=== PATIENT | female | born 1945 | race Caucasian/White ===

== ENCOUNTER 2017-08-19 06:52 | Day surgery (SDC) | payer MEDICARE ==
[~2017-08-19 06:52] MED LIST: Acetaminophen TAB* 325 MG PO PRN; Buffered Lidocaine 0.9% SYRIN* 5 ML/SYR SYRINGE INTRADERM ONE
[2017-08-19] MEDS ORDERED: fentaNYL* 50 MCG/ML 2 ML VIAL (100 MCG VIAL) ONE (07:23)
[2017-08-19] MEDS ORDERED: Midazolam* 1 MG/ML 2 ML VIAL (2 MG) ONE (07:23)
[2017-08-19 08:50] VITALS: BP 161/89
[2017-08-19] MEDS ORDERED: Tropicamide 1% OPTH.SOL* BTL ONE (08:58)
[2017-08-19] MEDS ORDERED: Cyclopentolate 1% OPTH.SOL* 2 ML BTL ONE (08:58)
[2017-08-19] MEDS ORDERED: Tetracaine 0.5% OPTH.SOL 4 ML* 1 DROP BTL ONE (08:58)
[2017-08-19] MEDS ORDERED: Lidocaine 1% MPF* 2 ML VIAL ONE (08:58)
[2017-08-19] MEDS ORDERED: Phenylephrine 2.5% OPTH.SOL* 2 ML BTL ONE (08:58)
[2017-08-19] MEDS ORDERED: Ketorolac 0.5% OPHTH (NF) 0.5 % 5 ML BTL ONE (08:58)
[2017-08-19] MEDS ORDERED: Neomycin/Polymy/Dex OPHTH.OIN* 3.5 GM ONE (08:58)
--- NOTE | 2017-08-19 21:01 | OP ---
DATE OF OPERATION: 08/19/17 - [facility] DATE OF : 47 SURGEON: Zaki Shelby MD CHIEF HYDROELECTRIC STATION OPERATOR: None. ANESTHESIA: Topical with intravenous sedation. PRE-OP DIAGNOSIS: Cataract with astigmatism, right eye. POST-OP DIAGNOSIS: Cataract with astigmatism, right eye. OPERATIVE PROCEDURE: Phacoemulsification and cataract extraction with posterior chamber toric intraocular lens implant right eye. COMPLICATIONS: None. BLOOD LOSS: None. DESCRIPTION OF PROCEDURE: The patient was seen preoperatively in the holding area, where she was placed in an upright position. A cedric was made at the 6 o' clock position at the limbus of the right eye. The patient was subsequently brought to the operating room and received a small amount of intravenous sedation and a drop of tetracaine. The patient was prepped in the usual sterile fashion for ophthalmic surgery and a speculum was placed into her right eye. A para-centesis was created at the 11 o'clock position and 0.1 cc of 1% preservative-free lidocaine was injected into the anterior chamber followed by DisCoVisc. The eye was digitally stabilized while a 2.75-mm keratome was used to create a triplanar clear corneal incision at the 9 o'clock position. A continuous curvilinear capsulorrhexis was created with a cystotome and Utrata forceps. BSS on a cannula was used to hydrodissect the lens from the capsule. Phacoemulsification was performed in a qzgczh-pta-dpplivv technique to create 4 fragments, which were removed. Residual cortical material was removed with irrigation and aspiration. Healon was used to inflate the capsular bag. A Cruz marker and marking pen were used to cedric the 3- degree axis of the limbus. An SN6AT3 20.5 diopter lens was folded and inserted into the capsular bag. It was dialed to the appropriate orientation using a Sinskey hook and stabilized there with a Sinskey hook to the paracentesis site. Irrigation and aspiration were performed to remove viscoelastic from the eye. The Sinskey hook was removed. BSS on a cannula was used to hydrate the corneal stroma and seal the wound. At the end of the case, the pupil was round. The lens was centered stable and axially aligned. The eye pressure appeared normal and the wound was watertight. The speculum was removed. Topical Maxitrol ointment was placed on the surface of the eye. The eye was closed, patched and shielded, and the patient was sent to recovery room in stable condition with postoperative instructions and followup appointment given. [id number]/[facility] #: [id number] [place]
== END 2017-08-19 08:52 | disposition home or self-care (01) ==
LOC: OREAST 06:52
PROVIDERS: ATTEND Ophthalmology
DX: H25.11 Age-related nuclear cataract, right eye (principal); E11.9 Type 2 diabetes mellitus without complications; Z87.891 Personal history of nicotine dependence; I10 Essential (primary) hypertension; K21.0 Gastro-esophageal reflux disease with esophagitis; E78.5 Hyperlipidemia, unspecified
CPT/HCPCS: A9270-GY; J2250; J3010; V2787

== ENCOUNTER 2017-08-26 10:07 | Day surgery (SDC) | payer MEDICARE ==
[2017-08-26] MEDS ORDERED: fentaNYL* 50 MCG/ML 2 ML VIAL (100 MCG VIAL) ONE (11:40)
[2017-08-26] MEDS ORDERED: Midazolam* 1 MG/ML 2 ML VIAL (2 MG) ONE (11:40)
[2017-08-26] MEDS ORDERED: Tropicamide 1% OPTH.SOL* BTL ONE (12:18)
[2017-08-26] MEDS ORDERED: Neomycin/Polymy/Dex OPHTH.OIN* 3.5 GM ONE (12:18)
[2017-08-26] MEDS ORDERED: Phenylephrine 2.5% OPTH.SOL* 2 ML BTL ONE (12:18)
[2017-08-26] MEDS ORDERED: Tetracaine 0.5% OPTH.SOL 4 ML* 1 DROP BTL ONE (12:18)
[2017-08-26] MEDS ORDERED: Lidocaine 1% MPF* 2 ML VIAL ONE (12:18)
[2017-08-26] MEDS ORDERED: Cyclopentolate 1% OPTH.SOL* 2 ML BTL ONE (12:18)
[2017-08-26] MEDS ORDERED: Ketorolac 0.5% OPHTH (NF) 0.5 % 5 ML BTL ONE (12:19)
[2017-08-26 12:58] VITALS: BP 148/95
--- NOTE | 2017-08-27 12:31 | OP ---
DATE OF OPERATION: 08/26/17 - [facility] DATE OF : 47 SURGEON: Zaki Shelby MD CENTER RECEPTIONIST: None. ANESTHESIA: Topical with intravenous sedation. PRE-OP DIAGNOSIS: Cataract, left eye with astigmatism. POST-OP DIAGNOSIS: Cataract, left eye with astigmatism. OPERATIVE PROCEDURE: Phacoemulsification and cataract extraction with posterior chamber toric intraocular lens implant, left eye. COMPLICATIONS: None. BLOOD LOSS: None. DESCRIPTION OF PROCEDURE: The patient was seen preoperatively in the holding area where she was placed in upright position and a cedric was made at the 6 o' clock position on the limbus of the left eye. The patient was subsequently brought to the operating room and given a small amount of intravenous sedation and a drop of tetracaine to the left eye. The patient was prepped and draped in the usual sterile fashion for ophthalmic surgery and attention was directed to the left eye where a speculum was placed. A paracentesis was created at the 5 o'clock position and 0.1 cc of 1% preservative-free lidocaine was injected into the anterior chamber followed by DisCoVisc. The eye was digitally stabilized while a 2.75 mm keratome was used to create a triplanar clear corneal incision at the 3 o'clock position. A continuous curvilinear capsulorrhexis was created using a cystotome and Utrata forceps. BSS on a cannula was used to hydrodissect the lens from the capsule. Phacoemulsification was performed in a gmnsub-nbd-nsizyjs technique to create 4 fragments which were removed. Residual cortical material was removed with irrigation and aspiration. Healon was used to inflate the capsular bag. A Crzu marker was used to cedric the 172 degree axis. An SN6AT3 21 diopter lens was folded and inserted into the capsular bag. It was dialed to the appropriate axial alignment with a Sinskey hook. The Sinskey hook remained in the eye to stabilize the lens with a paracentesis while irrigation and aspiration were performed to remove viscoelastic from the eye. BSS on a cannula was used to hydrate the corneal stroma. At the end of the case, the pupil was round. The lens was centered, stable and axillary aligned. The eye pressure appeared normal. The wound was water tight. The speculum was removed and topical Maxitrol ointment was placed on the surface of the eye. The eye was closed, patched and shielded and the patient was sent to the recovery room in stable condition with postop instructions and followup appointment given. [id number]/[facility] #: [id number] [place]
== END 2017-08-26 13:06 | disposition home or self-care (01) ==
LOC: OREAST 10:07
PROVIDERS: ATTEND Ophthalmology
DX: H25.12 Age-related nuclear cataract, left eye (principal); I10 Essential (primary) hypertension; E78.00 Pure hypercholesterolemia, unspecified; E11.9 Type 2 diabetes mellitus without complications; Z87.891 Personal history of nicotine dependence; K21.9 Gastro-esophageal reflux disease without esophagitis
CPT/HCPCS: A9270-GY; J2250; J3010; V2787

== ENCOUNTER 2019-06-16 08:03 | Inpatient (IN) | payer MEDICARE ==
--- OUTSIDE RECORDS SUMMARY | 2019-06-16 08:13 | XMS REPORT | Continuity of Care Document ---
:1945 External Reference #:[id number] Author Name Devon Curiel M.D. Address [address] [place] [address] [address] [place] [address] Care Team Providers Name Role Phone Trever Mcarthur MD - Sports Medicine Care Team Information Lead Care Manager Samia Santana MD - Orthopaedic Care Team Information Lead Care Manager [phone] Surgery [facility] - Spec/Tech, Care Team Information Lead Care Manager [phone] Cardiovascular Zaki Shelby MD [facility] - Care Team Information Lead Care Manager [phone] Ophthalmology Problems Active Problems Provider Date Essential hypertension Marcia Sierra MD Onset: 01/23/2006 Type 2 diabetes mellitus Marcia Sierra MD Onset: 02/08/2010 Pure hypercholesterolemia Marcia Sierra MD Onset: 02/08/2010 Arthralgia of the ankle and/or foot Marcia Sierra MD Onset: 02/08/2010 History of malignant neoplasm of skin Devon Curiel M.D. Onset: 11/24/2018 Essential hypertension Pebbles Moreno RPA-C Onset: 04/07/2015 Gastroesophageal reflux disease Marcia Sierra MD Onset: 11/29/2014 Social History Type Date Description Comments Sex Unknown Tobacco Use Start: Unknown End: Does Not Smoke quit 40 years ago Unknown Cigarettes (08/13/17) Smoking Status Reviewed: 05/19/19 Does Not Smoke quit 40 years ago Cigarettes (08/13/17) ETOH Use Drinks Alcohol Occasionally Recreational Drug Use Denies Drug Use Tobacco Use Start: Unknown Non Smoker Tobacco Use Start: Unknown End: Patient is a former Unknown smoker Allergies, Adverse Reactions, Alerts Description No Known Drug Allergies Medications Active Medications SIG Qnty Indications Ordering Date Provider Triamterene/Hydrochl take 1 tablet by 90tabs I10 Silcoff, 11/24/2018 orothiazide mouth every Apple Osorio 37.5-25mg morning for high Tablets blood pressure Onetouch Ultra Blue use as directed up 100units E11.9 Silcoff, 04/22/2017 to once/day for Apple Osorio Strips blood sugar monitoring Losartan Potassium Take 1 Tablet By 90tabs I10 Silcoff, 01/05/2016 Mouth Once Daily Apple Osorio 100mg Tablets Pantoprazole Sodium Take One Tablet By 180tabs K21.0 Silcoff, 01/05/2016 Mouth Twice Daily Apple Osorio 40mg Tablets For Acid Reflux Atorvastatin Calcium Take 1 Tablet By 90tabs E78.00 Silcoff, 11/24/2013 Mouth Once Daily Apple Osorio 40mg Tablets Fish Oil bid Marcia Sierra 05/21/2007 Asa (Baby) 1 by mouth every 100units Marcia Sierra 01/23/2006 81mg day Multi-Vitamin 1 po qd 30tabs Unknown Tablets Immunizations CPT Code Status Date Vaccine Lot # [id number] Given 04/09/2019 Influenza Vaccine Split Virus Preservative Free [place] Use 31880 Given 05/14/2018 Shingrix Zoster (Shingles) Vaccine (HZV) Recomb,Subnit,Adjuvanted 96282 Given 03/13/2018 Shingrix Zoster (Shingles) Vaccine (HZV) Recomb,Subnit,Adjuvanted 17751 Given 04/12/2016 Pneumococcal Immunization [id number] 29126 Given 04/12/2016 Influenza Virus Vaccine, Quadrivalent, Split, [id number] Preservative Free 27399 Given 04/10/2015 Influenza Vaccine Split Virus Preservative Free Im Use 37687 Given 04/07/2015 Prevnar 13 [id number] 21653 Given 04/27/2013 Flu, Split Virus 3Yrs [id number] 89376 Given 05/02/2011 Flu, Split Virus 3Yrs [id number] 00773 Given 11/15/2010 Adacel or Boostrix, TDaP [id number] 18538 Given 06/12/2010 Pneumococcal Immunization [id number] 53326 Given 04/06/2009 Flu, Split Virus 3Yrs [id number] 76427 Given 12/30/2006 Td Immunization [id number] 24631 Given 05/14/2005 Flu, Split Virus 3Yrs 35856 Given Unknown Flu, Split Virus 3Yrs Vital Signs Date Vital Result Comment 05/19/2019 9:14am BP Systolic 128 mmHg BP Diastolic 74 mmHg Height 65.5 inches 5'5.50" Weight 159.00 lb BMI (Body Mass Index) 26.1 kg/m2 01/06/2019 9:41am BP Systolic 114 mmHg BP Diastolic 68 mmHg BP Systolic Recheck 120 mmHg R arm sitting BP Diastolic Recheck 76 mmHg R arm sitting Weight 159.00 lb Results Test Acquired Date Facility Test Result H/L Range Note Laboratory test 05/19/2019 In House Hemoglobin A1c 6.6 finding Urine 05/10/2019 [facility] Ur Microalbumin < 15.0 Microalbumin [phone] (mg/L) mg/L Random Urine Creatinine 58.32 mg/dL Urine Microalbumin/Creatinine TNP <31 1 Basic Metabolic Panel 05/10/2019 [facility] Sodium 137 mmol/L Normal 135-145 [phone] Potassium 3.8 mmol/L Normal 3.5-5.0 Chloride 98 mmol/L Low 101-111 Co2 Carbon Dioxide 33 mmol/L High 22-32 Anion Gap 6 mmol/L Normal 2-11 Glucose 136 mg/dL High 70-100 Blood Urea Nitrogen 9 mg/dL Normal 6-24 Creatinine 0.61 mg/dL Normal 0.51-0.95 BUN/Creatinine Ratio 14.8 Normal 8-20 Calcium 9.9 mg/dL Normal 8.6-10.3 Egfr Non- 96.4 >60 Egfr 116.7 >60 2 Lipid Profile (Trig/Chol/HDL) 05/10/2019 [facility] Triglycerides 185 mg/dL 3 [phone] Cholesterol 175 mg/dL 4 HDL Cholesterol 38.4 mg/dL 5 LDL Cholesterol 100 mg/dL 6 Laboratory test finding 05/10/2019 [facility] Alt 18 U/L Normal 7-52 7 [phone] Basic Metabolic Panel 12/14/2018 [facility] Sodium 141 mmol/L Normal 135-145 [phone] Potassium 3.9 mmol/L Normal 3.5-5.0 Chloride 103 mmol/L Normal 101-111 Co2 Carbon Dioxide 32 mmol/L Normal 22-32 Anion Gap 6 mmol/L Normal 2-11 Glucose 124 mg/dL High 70-100 Blood Urea Nitrogen 15 mg/dL Normal 6-24 Creatinine 0.95 mg/dL Normal 0.51-0.95 BUN/Creatinine Ratio 15.8 Normal 8-20 Calcium 10.0 mg/dL Normal 8.6-10.3 Egfr Non- 57.8 >60 Egfr 70.0 >60 8 Laboratory test finding 11/24/2018 In House Hemoglobin A1c 6.4 1 Unable to calculate due to low microalbumin 2 Because ethnic data is not always readily available, this report includes an eGFR for both -Americans and non- Americans. The National Kidney Disease Education Program (NKDEP) does not endorse the use of the MDRD equation for patients that are not between the ages of 18 and 70, are , have extremes of body size, muscle mass, or nutritional status, or are non- or non-. According to the National Kidney Foundation, irrespective of diagnosis, the stage of the disease is based on the level of kidney function: Stage Description GFR(mL/min/1.73 m(2)) 1 Kidney damage with normal or decreased GFR 90 2 Kidney damage with mild decrease in GFR 60-89 3 Moderate decrease in GFR 30-59 4 Severe decrease in GFR 15-29 5 Kidney failure <15 (or dialysis) 3 Desirable: <150 Borderline High: 150-199 High: 200-499 Very High: >500 4 Desirable: <200 Borderline High: 200-239 High: >239 5 Low: <40 Desirable: 40-60 High: >60 6 Desirable: <100 Near Optimal: 100-129 Borderline High: 130-159 High: 160-189 Very High: >189 7 FASTING 12 HOUR 8 Because ethnic data is not always readily available, this report includes an eGFR for both -Americans and non- Americans. The National Kidney Disease Education Program (NKDEP) does not endorse the use of the MDRD equation for patients that are not between the ages of 18 and 70, are , have extremes of body size, muscle mass, or nutritional status, or are non- or non-. According to the National Kidney Foundation, irrespective of diagnosis, the stage of the disease is based on the level of kidney function: Stage Description GFR(mL/min/1.73 m(2)) 1 Kidney damage with normal or decreased GFR 90 2 Kidney damage with mild decrease in GFR 60-89 3 Moderate decrease in GFR 30-59 4 Severe decrease in GFR 15-29 5 Kidney failure <15 (or dialysis) Procedures Date Code Description Status 05/19/2019 65342 Electrocardiogram Complete Completed 05/19/2019 466432997 Diabetic Foot Exam Completed 07/30/2018 [id number] Colonoscopy Completed 06/03/2018 [id number] Mammogram Completed 03/30/2018 [id number] Diabetic Retinal Eye Exam Completed Medical Devices Description No Information Available Encounters Type Date Location Provider Dx Diagnosis Office Visit 05/19/2019 Main Office Devon Curiel Z68.26 Body mass index 9:15a M.D. (BMI) 26.0-26.9, adult I10 Essential (primary) hypertension E11.9 Type 2 diabetes mellitus without complications Office Visit 01/06/2019 9:45a Main Office Devon Curiel I10 Essential (primary) M.DSeymour hypertension E11.9 Type 2 diabetes mellitus without complications E78.00 Pure hypercholesterolemia, unspecified Office Visit 11/24/2018 8:30a Main Office Devon Curiel Z68.26 Body mass index M.D. (BMI) 26.0-26.9, adult E11.9 Type 2 diabetes mellitus without complications I10 Essential (primary) hypertension Z85.828 Personal history of other malignant neoplasm of skin Assessments Date Code Description Provider 05/19/2019 Z68.26 Body mass index (BMI) 26.0-26.9, adult Devon Curiel M.D. 05/19/2019 I10 Essential (primary) hypertension Devon Curiel M.D. 05/19/2019 E11.9 Type 2 diabetes mellitus without Devon Curiel M.D. complications 01/06/2019 I10 Essential (primary) hypertension Devon Curiel M.D. 01/06/2019 E11.9 Type 2 diabetes mellitus without Devon Curiel M.D. complications 01/06/2019 E78.00 Pure hypercholesterolemia, unspecified Devon Curiel M.D. 11/24/2018 Z68.26 Body mass index (BMI) 26.0-26.9, adult Devon Curiel M.D. 11/24/2018 E11.9 Type 2 diabetes mellitus without Devon Curiel M.D. complications 11/24/2018 I10 Essential (primary) hypertension Devon Curiel M.D. 11/24/2018 Z85.828 Personal history of other malignant neoplasm Devon Curiel M.D. of skin Plan of Treatment 08/13/2017 - Marjorie Everett, PAZ01.818 Encounter for other preprocedural examinationComments:Patient is at mildly increased risk for surgery due diabetes , but is cleared for planned low risk procedure without additional cardiac testing based on ACC/AHA guidelines (one intermediate clinical predictor only) .Patient has no prior anaesthetic related complications.She was advised to inform the surgeon of any acute illness which may occur between now and surgical date. This consultation has been faxed to the referring physician.EKG from 04/22/17 - Sinus rhythm. Vent rate 70, Tiffany 168, QRSd 90, QT/QTc 411/433, P- R-T axes 48/-20/11. EKG compared with study from 01/05/16--no significant change.Labs ordered - CBC, CMP, INR, UA. Results pending, will be copied to surgeon.H26.9 Unspecified cataractComments:Surgery to be done as above.E11.9 Type 2 diabetes mellitus without complicationsComments:Well controlled w A1C of 6.4 today.I10 Essential (primary) hypertension Functional Status Description No Information Available Mental Status Description No Information Available Referrals Description No Information Available
--- OUTSIDE RECORDS SUMMARY | 2019-06-16 08:13 | XMS REPORT | Continuity of Care Document ---
:1945 External Reference #:[id number] Author Name Devon Curiel M.D. (transmitted by agent of provider Joslyn Pineda) Address [address] [place] [address] Care Team Providers Name Role Phone Trever Mcarthur MD - Sports Medicine Care Team Information Talent Associate [phone] Samia Santana MD - Orthopaedic Care Team Information Talent Associate Surgery [place] [facility] - Spec/Tech, Care Team Information Talent Associate Cardiovascular Zaki Shelby MD [facility] - Care Team Information Talent Associate [phone] Ophthalmology Problems Active Problems Provider Date Essential [...] CPT Code Status Date Vaccine Lot # [id number] Given 04/09/2019 Influenza Vaccine Split Virus Preserv[place] Use 92703 Given 05/14/2018 Shingrix Zoster (Shingles) Vaccine (HZV) Recomb,Subnit,Adjuvanted 26840 Given 03/13/2018 Shingrix Zoster (Shingles) Vaccine (HZV) Recomb,Subnit,Adjuvanted 71455 Given 04/12/2016 Pneumococcal Immunization [id number] 89215 Given 04/12/2016 Influenza Virus Vaccine, Quadrivalent, Split, [id number] Preservative Free 74378 Given 04/10/2015 Influenza Vaccine Split Virus Preservative Free Im Use 85912 Given 04/07/2015 Prevnar 13 [id number] 53632 Given 04/27/2013 Flu, Split Virus 3Yrs [id number] 09315 Given 05/02/2011 Flu, Split Virus 3Yrs [id number] 58112 Given 11/15/2010 Adacel or Boostrix, TDaP [id number] 42073 Given 06/12/2010 Pneumococcal Immunization [id number] 38921 Given 04/06/2009 Flu, Split Virus 3Yrs [id number] 25847 Given 12/30/2006 Td Immunization [id number] 77645 Given 05/14/2005 Flu, Split Virus 3Yrs 56454 Given Unknown Flu, Split Virus 3Yrs Vital [...] House Hemoglobin A1c 6.6 finding Urine 05/10/2019 [facility] Ur Microalbumin < 15.0 Microalbumin [phone] (mg/L) mg/L Random Urine Creatinine 58.32 mg/dL Urine Microalbumin/Creatinine TNP <31 1 Basic Metabolic Panel 05/10/2019 [facility] Sodium 137 mmol/L Normal 135-145 [phone] Potassium 3.8 mmol/L Normal 3.5-5.0 Chloride 98 mmol/L Low 101-111 Co2 Carbon Dioxide 33 mmol/L High 22-32 Anion Gap 6 mmol/L Normal 2-11 Glucose 136 mg/dL High 70-100 Blood Urea Nitrogen 9 mg/dL Normal 6-24 Creatinine 0.61 mg/dL Normal 0.51-0.95 BUN/Creatinine Ratio 14.8 Normal 8-20 Calcium 9.9 mg/dL Normal 8.6-10.3 Egfr Non- 96.4 >60 Egfr 116.7 >60 2 Lipid Profile (Trig/Chol/HDL) 05/10/2019 [facility] Triglycerides 185 mg/dL 3 [phone] Cholesterol 175 mg/dL 4 HDL Cholesterol 38.4 mg/dL 5 LDL Cholesterol 100 mg/dL 6 Laboratory test finding 05/10/2019 [facility] Alt 18 U/L Normal 7-52 7 [phone] Basic Metabolic Panel 12/14/2018 [facility] Sodium 141 mmol/L Normal 135-145 [phone] Potassium 3.9 mmol/L Normal 3.5-5.0 Chloride 103 [...] dialysis) Procedures Date Code Description Status 05/19/2019 09703 Electrocardiogram Complete Completed 05/19/2019 [id number] Diabetic Foot Exam Completed 07/30/2018 [id number] Colonoscopy Completed 06/03/2018 [id number] Mammogram Completed 03/30/2018 [id number] Diabetic Retinal Eye Exam Completed Medical Devices [...] Curiel M.D. of skin Plan of Treatment Future Appointment(s):11/24/2019 9:45 am - Devon Curiel M.D. at Main Rztnon3208/13/2017 - Marjorie Everett, PAZ01.818 Encounter for other [...]
--- OUTSIDE RECORDS SUMMARY | 2019-06-16 08:13 | XMS REPORT | Continuity of Care Document ---
:1945 External Reference #:[id number] Author Name Devon Curiel M.D. Address [address] [place] [address] [address] [place] [address] Care Team Providers Name Role Phone Trever Mcarthur MD - Sports Medicine Care Team Information Senior Network Architect Samia Santana MD - Orthopaedic Care Team Information Senior Network Architect [phone] [facility], Care Team Information Senior Network Architect [phone] Cardiovascular Zaki Shelby MD [facility] - Care Team Information Senior Network Architect [phone] Ophthalmology Problems Active Problems Provider Date Essential [...] Medications SIG Qnty Indications Ordering Date Provider Ondansetron HCL 1 by mouth every 4 15tabs R11.0 Silcoff, 06/14/2019 4mg hours as needed Apple Osorio Tablets for nausea Triamterene/Hydrochl take 1 tablet by 90tabs I10 [...] Mouth Twice Daily Apple Osorio 40mg Tablets DR For Acid Reflux Atorvastatin Calcium Take 1 Tablet By 90tabs E78.00 Silcoff, 11/24/2013 Mouth Once Daily Apple Osorio 40mg Tablets Fish Oil bid Marcia Sierra 05/21/2007 Asa (Baby) 1 by mouth every 100units Marcia Sierra 01/23/2006 81mg day Multi-Vitamin 1 po qd 30tabs Unknown Tablets Immunizations CPT Code Status Date Vaccine Lot # [id number] Given 04/09/2019 Influenza Vaccine Split Virus Preservative Free Im Use (hi-dose) 69725 Given 05/14/2018 Shingrix Zoster (Shingles) Vaccine (HZV) Recomb,Subnit,Adjuvanted 94183 Given 03/13/2018 Shingrix Zoster (Shingles) Vaccine (HZV) Recomb,Subnit,Adjuvanted 94112 Given 04/12/2016 Pneumococcal Immunization [id number] 42462 Given 04/12/2016 Influenza Virus Vaccine, Quadrivalent, Split, [id number] Preservative Free 34931 Given 04/10/2015 Influenza Vaccine Split Virus Preservative Free Im Use (hi-dose) 31438 Given 04/07/2015 Prevnar 13 [id number] 91009 Given 04/27/2013 Flu, Split Virus 3Yrs [id number] 22631 Given 05/02/2011 Flu, Split Virus 3Yrs [id number] 50402 Given 11/15/2010 Adacel or Boostrix, TDaP [id number] 61996 Given 06/12/2010 Pneumococcal Immunization [id number] 42900 Given 04/06/2009 Flu, Split Virus 3Yrs [id number] 45216 Given 12/30/2006 Td Immunization [id number] 92910 Given 05/14/2005 Flu, Split Virus 3Yrs 12849 Given Unknown Flu, Split Virus 3Yrs Vital Signs Date Vital Result Comment 06/14/2019 1:31pm BP Systolic 110 mmHg BP Diastolic 60 mmHg Body Temperature 97.9 F Weight 154.00 lb 05/19/2019 9:14am BP Systolic 128 mmHg BP Diastolic 74 mmHg Height 65.5 inches 5'5.50" Weight 159.00 lb BMI (Body Mass Index) 26.1 kg/m2 Results Test Acquired Date Facility Test Result H/L Range Note Laboratory test 05/19/2019 In House Hemoglobin A1c 6.6 finding Urine 05/10/2019 [facility] Ur Microalbumin < 15.0 Microalbumin [phone] (mg/L) mg/L Random Urine Creatinine 58.32 mg/dL Urine Microalbumin/Creatinine TNP <31 1 Basic Metabolic Panel 05/10/2019 [facility] Sodium 137 mmol/L Normal 135-145 [phone] Potassium 3.8 mmol/L Normal 3.5-5.0 Chloride 98 mmol/L Low 101-111 Co2 Carbon Dioxide 33 mmol/L High 22-32 Anion Gap 6 mmol/L Normal 2-11 Glucose 136 mg/dL High 70-100 Blood Urea Nitrogen 9 mg/dL Normal 6-24 Creatinine 0.61 mg/dL Normal 0.51-0.95 BUN/Creatinine Ratio 14.8 Normal 8-20 Calcium 9.9 mg/dL Normal 8.6-10.3 Egfr Non- 96.4 >60 Egfr 116.7 >60 2 Lipid Profile (Trig/Chol/HDL) 05/10/2019 [facility] Triglycerides 185 mg/dL 3 [phone] Cholesterol 175 mg/dL 4 HDL Cholesterol 38.4 mg/dL 5 LDL Cholesterol 100 mg/dL 6 Laboratory test finding 05/10/2019 [facility] Alt 18 U/L Normal 7-52 7 [phone] Basic Metabolic Panel 12/14/2018 [facility] Sodium 141 mmol/L Normal 135-145 [phone] Potassium 3.9 mmol/L Normal 3.5-5.0 Chloride 103 mmol/L Normal 101-111 Co2 Carbon Dioxide 32 mmol/L Normal 22-32 Anion Gap 6 mmol/L Normal 2-11 Glucose 124 mg/dL High 70-100 Blood Urea Nitrogen 15 mg/dL Normal 6-24 Creatinine 0.95 mg/dL Normal 0.51-0.95 BUN/Creatinine Ratio 15.8 Normal 8-20 Calcium 10.0 mg/dL Normal 8.6-10.3 Egfr Non- 57.8 >60 Egfr 70.0 >60 8 1 Unable to calculate due to low [...] (or dialysis) Procedures Date Code Description Status 06/04/2019 31290411 Mammogram Completed 05/19/2019 16464 Electrocardiogram Complete Completed 05/19/2019 [id number] Diabetic Foot Exam Completed 07/30/2018 18560679 Colonoscopy Completed 03/30/2018 413736926 Diabetic Retinal Eye Exam Completed Medical Devices Description No Information Available Encounters Type Date Location Provider Dx Diagnosis Office Visit 06/14/2019 1:30p Main Office Devon Curiel M.D. R11.0 Nausea R19.7 Diarrhea, unspecified Office Visit 05/19/2019 9:15a Main Office Devon Curiel Z68.26 Body mass index M.D. (BMI) 26.0-26.9, adult I10 Essential (primary) hypertension E11.9 Type 2 diabetes mellitus without complications Office Visit 01/06/2019 9:45a Main Office Devno Curiel I10 Essential (primary) MSeymourDSeymour hypertension E11.9 Type 2 diabetes mellitus without complications E78.00 Pure hypercholesterolemia, unspecified Assessments Date Code Description Provider 06/14/2019 R11.0 Nausea Devon Curiel M.D. 06/14/2019 R19.7 Diarrhea, unspecified Devon Curiel M.D. 05/19/2019 Z68.26 Body mass index (BMI) 26.0-26.9, adult Devon Curiel M.D. 05/19/2019 I10 Essential (primary) hypertension Devon Curiel M.D. 05/19/2019 E11.9 Type 2 diabetes mellitus without Devon Curiel M.D. complications 01/06/2019 I10 Essential (primary) hypertension Devon Curiel M.D. 01/06/2019 E11.9 Type 2 diabetes mellitus without Devon Curiel M.D. complications 01/06/2019 E78.00 Pure hypercholesterolemia, unspecified Devon Curiel M.D. Plan of Treatment Future Appointment(s):11/24/2019 9:45 am - Devon Curiel M.D. at [facility]208/13/2017 - Marjorie Everett, [id number] Encounter for other preprocedural examinationComments:Patient is at [...]
--- OUTSIDE RECORDS SUMMARY | 2019-06-16 08:13 | XMS REPORT | Continuity of Care Document ---
:1945 External Reference #:[id number] Author Name Zaki Shelby M.D. Address [address] [place] [address] Care Team Providers Name Role Phone Moisés BALL, Devon - [facility] Care Team Information Insulator Helper [phone] Problems Active Problems Provider Date Presbyopia Trever Milligan O.D. Onset: 11/18/2013 Vitreous degeneration Trever Milligan O.D. Onset: 11/18/2013 Nuclear senile cataract Trever Milligan O.D. Onset: 11/18/2013 Social History Type Date Description Comments Sex Unknown ETOH Use Occasionally consumes alcohol Tobacco Use Start: Unknown Patient has never smoked Smoking Status Reviewed: 04/30/19 Patient has never smoked Allergies, Adverse Reactions, Alerts Active Allergies Reaction Severity Comments Date NKDA 11/18/2013 Seasonal 11/18/2013 Medications Active Medications SIG Qnty Indications Ordering Provider Date Pantoprazole Sodium Unknown 40mg Tablets DR Potassium Chloride ER Unknown 20Meq Tablets ER Losartan Potassium Unknown 100mg Tablets Atorvastatin Calcium Take 1 Tablet By Unknown 40mg Mouth Once Daily Tablets Triamterene/Hydrochloro Unknown thiazide 37.5-25mg Tablets Immunizations Description No Information Available Vital Signs Date Vital Result Comment 04/02/2019 9:25am Intraocular Pressure Right Eye 17 mmHg Intraocular Pressure Left Eye 16 mmHg 03/30/2018 8:21am Intraocular Pressure Right Eye 16 mmHg Intraocular Pressure Left Eye 16 mmHg Results Description No Information Available Procedures Date Code Description Status 04/30/2019 61654 Remove Secondary Cataract, Laser (Yag) Completed 04/02/2019 75479 Ophthalmoscopy Subsequent Completed 04/02/2019 99290 Eye Exam Est Intermediate Completed Medical Devices Description No Information Available Encounters Description No Information Available Assessments Date Code Description Provider 04/30/2019 H26.492 Other secondary cataract, left eye Zaki Shelby M.D. 04/02/2019 E11.9 Type 2 diabetes mellitus without Zaki Shelby M.D. complications 04/02/2019 H43.813 Vitreous degeneration, bilateral Zaki Shelby M.D. 04/02/2019 H26.492 Other secondary cataract, left eye Zaki Shelby M.D. Plan of Treatment Future Appointment(s):05/07/2019 9:45 am - Trever Geronimo, OD at [id number] - Zaki Shelby M.D.H26.492 Other secondary cataract, left eyeFollow up:1-2 wks post yag cap os Dr Germain Functional Status Description No Information Available Mental Status Description No Information Available Referrals Description No Information Available
--- OUTSIDE RECORDS SUMMARY | 2019-06-16 08:13 | XMS REPORT | Continuity of Care Document ---
:1945 External Reference #:[id number] Author Name Trever Garciaon, OD Address [address] [place] [address] Care Team Providers Name Role Phone Moisés BALL, [facility] Care Team Information Financial Analysis Advisor Problems Active Problems Provider Date Presbyopia Trever Milligan O.D. Onset: 11/18/2013 Vitreous degeneration Trever Milligan O.D. Onset: 11/18/2013 Nuclear senile cataract Trever Milligan O.D. Onset: 11/18/2013 Social History Type Date Description Comments Sex Unknown ETOH Use Occasionally consumes alcohol Tobacco Use Start: Unknown Patient has never smoked Smoking Status Reviewed: 05/07/19 Patient has never smoked Allergies, Adverse Reactions, [...] Available Procedures Date Code Description Status 04/30/2019 03923 Remove Secondary Cataract, Laser (Yag) Completed 04/02/2019 64268 Ophthalmoscopy Subsequent Completed 04/02/2019 11853 Eye Exam Est Intermediate Completed Medical Devices Description No Information Available Encounters Description No Information Available Assessments Date Code Description Provider 05/07/2019 Z96.1 Presence of intraocular lens Trever Geronimo, OD 04/30/2019 H26.492 Other secondary cataract, left eye Zaki Shelby M.D. 04/02/2019 E11.9 Type 2 diabetes mellitus without Zaki Shelby M.D. complications 04/02/2019 H43.813 Vitreous degeneration, bilateral Zaki Shelby M.D. 04/02/2019 H26.492 Other secondary cataract, left eye Zaki Shelby M.D. Plan of Treatment 05/07/2019 - Trever Geronimo, ODZ96.1 Presence of intraocular lensFollow up:2019 full, sooner PRN Functional Status Description No Information Available Mental Status Description No Information Available Referrals Description No Information Available
--- NOTE | 2019-06-16 08:45 | ED ---
Abdominal Pain/Female - HPI Summary HPI Summary: 73-year-old female presenting with abdominal pain. Patient states that 9 days ago she started having diarrhea and nausea. States that she noticed it was much worse after eating gravy on . On Friday she went to her PCP, who prescribed Zofran. Patient states that the Zofran helped for about 1 day, and did not provide any nausea relief yesterday. Last night she noticed a burning pain in her RUQ that radiates to the back. Decreased appetite, decreased fluid intake. PMH of GERD. FH of cholecystectomy. Denies fever. Admits to occasional chills. Denies vomiting. Denies chest pain, SOB. Normal BM this morning which was formed with no hematochezia, melena. Denies hematemesis. States the diarrhea subsided after a few days, but nausea remained. Denies any urinary symptoms. - History of Current Complaint Chief Complaint: EDAbdPain Stated Complaint: GENERAL ILLNESS PER PT Time Seen by Provider: 06/16/19 08:05 Hx Obtained From: Patient ?: No Onset/Duration: Lasting Days - 9 days Timing: Constant - slightly worse after eating Severity Initially: Mild Severity Currently: Mild Pain Intensity: 2 Pain Scale Used: 0-10 Numeric Radiates: Yes Radiates to: Back Character: Burning Aggravating Factor(s): Food Alleviating Factor(s): Nothing Associated Signs and Symptoms: Positive: Nausea, Diarrhea - Risk Factors Ectopic Risk Factor: Negative Ovarian Torsion Risk Factor: Negative Allergies/Adverse Reactions: Allergies Allergy/AdvReac Type Severity Reaction Status Date / Time No Known Allergies Allergy Verified 06/16/19 08:22 Home Medications: Home Medications Atorvastatin* [Lipitor*] 40 mg PO DAILY 06/16/19 [History Confirmed 06/16/19] Multivitamins/Minerals TAB* [Theragran/minerals TAB*] 1 tab PO DAILY 06/16/19 [ History Confirmed 06/16/19] Triamterene/HCTZ 37.5-25 MG* [Dyazide CAP*] 1 cap PO DAILY 06/16/19 [History Confirmed 06/16/19] PMH/Surg Hx/FS Hx/Imm Hx Previously Healthy: Yes Endocrine/Hematology History: Reports: Hx Diabetes - pre diabetic Cardiovascular History: Reports: Hx Hypertension Denies: Other Cardiovascular Problems/Disorders Respiratory History: Denies: Other Respiratory Problems/Disorders GI History: Reports: Hx Gastroesophageal Reflux Disease, Hx Hiatal Hernia Denies: Other GI Disorders Sensory History: Reports: Hx Cataracts - babatunde, Hx Contacts or Glasses - glasses Denies: Hx Hearing Aid Opthamlomology History: Reports: Hx Cataracts - babatunde, Hx Contacts or Glasses - glasses - Cancer History Hx Chemotherapy: No Hx Radiation Therapy: No - Surgical History Surgery Procedure, Year, and Place: tubal ligation; benign lump left breast Hx Anesthesia Reactions: No - Immunization History Hx Pertussis Vaccination: No Immunizations Up to Date: Yes Infectious Disease History: No Infectious Disease History: Denies: History Other Infectious Disease, Traveled Outside the [place] in Last 30 Days - Social History Occupation: Unemployed Lives: With Family Alcohol Use: Rare Alcohol Amount: social Hx Substance Use: No Substance Use Type: Reports: None Hx Tobacco Use: Yes Smoking Status (MU): Former Smoker Amount Used/How Often: pack a day for 15 yrs Have You Smoked in the Last Year: No Review of Systems Positive: Chills, Fatigue Eyes: Negative ENT: Negative Cardiovascular: Negative Negative: Chest Pain Respiratory: Negative Negative: Shortness Of Breath, Cough Positive: Abdominal Pain - RUQ, Diarrhea, Nausea. Negative: Vomiting Genitourinary: Negative Positive: no symptoms reported. Negative: burning, dysuria, frequency, hematuria Musculoskeletal: Negative Negative: Arthralgia, Myalgia Skin: Negative Neurological: Negative Negative: Headache, Weakness Psychological: Normal All Other Systems Reviewed And Are Negative: Yes Physical Exam Triage Information Reviewed: Yes Vital Signs On Initial Exam: Initial Vitals Temp Pulse Resp BP Pulse Ox 99.2 F 85 16 141/86 97 06/16/19 08:05 06/16/19 08:05 06/16/19 08:05 06/16/19 08:05 06/16/19 08:05 Vital Signs Reviewed: Yes Appearance: Positive: Well-Appearing, No Pain Distress, Well-Nourished Skin: Positive: Warm, Skin Color Reflects Adequate Perfusion, Dry Head/Face: Positive: Normal Head/Face Inspection Eyes: Positive: Normal, EOMI, [place], Conjunctiva Clear ENT: Positive: Normal ENT inspection, Hearing grossly normal Neck: Positive: Supple Respiratory/Lung Sounds: Positive: Clear to Auscultation, Breath Sounds Present. Negative: Rales, Rhonchi, Wheezes Cardiovascular: Positive: Normal, RRR, S1, S2. Negative: Murmur, Rub, Leg Edema Left, Leg Edema Right Abdomen Description: Positive: No Organomegaly, Soft, Other: - RUQ and epigastric tenderness. Negative: CVA Tenderness (R), CVA Tenderness (L), Pulsatile Mass Bowel Sounds: Positive: Present, Hyperactive Neurological: Positive: Normal Psychiatric: Positive: Normal, Affect/Mood Appropriate Procedures - Sedation Patient Received Moderate/Deep Sedation with Procedure: No Diagnostics - Vital Signs Vital Signs Temp Pulse Resp BP Pulse Ox 06/16/19 08:05 99.2 F 85 16 141/86 97 - Laboratory Result Diagrams: 06/16/19 08:37 06/16/19 14:05 Lab Statement: Any lab studies that have been ordered have been reviewed, and results considered in the medical decision making process. Abdominal Pain Fem Course/Dx - Course Course Of Treatment: 73 year old female presents with RUQ pain and 9 days of nausea, with some diarrhea which has since resolved. Denies fever. Hyperactive bowel shounds, mild tenderness to RUQ and epigastric regions. No CVA tenderness. No melena, hematochezia, hematuria, or vomiting. The patient does state she feels more weak than normal, however continues to be able to ambulate well. Reduced PO intake over the past week. Labs obtained: Sodium of 134, potassium 3.3, creatinine 2.5 and a GFR of 8.9. She does have an elevated bilirubin of 1.4. Gallbladder ultrasound obtained which shows no evidence of cholelithiasis or cholecystitis. Physical examination is positive Bryan sign, however mild. Patient appears well otherwise, vital signs are stable, nontoxic in appearing. Continues to have nausea, however also states this is mild, rated a 2/10. Pain in the RUQ is currently rated a 1/10, worse with palpation and better with rest. Symptoms are worse after eating, however remained constant despite eating or drinking. Discussed case with Dr. Martin for AMANDA/ AKF workup and consult for admission. She is given fluids. UA negative. No evidence of proteinuria. Pt does not appear to be dehydrated. - Diagnoses Differential Diagnosis: Positive: Gall Bladder Disease, Pancreatitis, Urinary Tract Infection Provider Diagnoses: Acute kidney injury - Provider Notifications Discussed Care Of Patient With: Toby Martin Instructed by Provider To: Will See In ED Discharge ED - Sign-Out/Discharge Documenting (check all that apply): Patient Departure - Discharge Plan Condition: Fair Disposition: ADMITTED TO [facility] Referrals: Devon Curiel MD [Primary Care Provider] - - Billing Disposition and Condition Condition: FAIR Disposition: Admitted to [facility]
[2019-06-16 08:47] LABS: ABS Eosinophils 0.1 10^3/ul (0-0.6); ABS Lymphocytes 1.4 10^3/ul (1.0-4.8); ABS Monocytes 0.7 10^3/ul (0-0.8); ABS Neutrophils 3.6 10^3/ul (1.5-7.7); Eosinophil % 1.5 %; Hematocrit 38 % (35-47); Hemoglobin 13.1 g/dL (12.0-16.0); Lymphocyte % 24.8 %; Mean Corpuscular HGB Conc 35 g/dL (31-36); Mean Corpuscular Hemoglobin 30 pg (27-31); Mean Corpuscular Volume 86 fL (80-97); Mean Platelet Volume 6.9 fL (7.4-10.4); Platelet Count 221 10^3/uL (150-450); Red Cell Distribution Width 12 % (10-15); White Blood Count 5.8 10^3/uL (3.5-10.8)
[2019-06-16 09:04] LABS: Albumin/Globulin Ratio 1.8 (1-3); C Reactive Protein 6.89 mg/L (<8.01); Calcium 9.1 mg/dL (8.6-10.3); EGFR African American 22.9 (>60); EGFR Non-African American 18.9 (>60); Globulin 2.2 g/dL (2-4); Magnesium 1.9 mg/dL (1.9-2.7); Potassium 3.3 mmol/L (3.5-5.0); Total Bilirubin 1.4 mg/dL (0.2-1.0); Total Protein 6.2 g/dL (6.4-8.9)
[2019-06-16] MEDS ORDERED: Ondansetron INJ* 2 MG/ML VIAL IV ONE (09:54)
[2019-06-16 09:56] LABS: Urine Appearance Clear; Urine Bilirubin Negative (Negative); Urine Blood Negative (Negative); Urine Color Straw; Urine Glucose Negative (Negative); Urine Ketones Negative (Negative); Urine Nitrite Negative (Negative); Urine Protein Negative (Negative); Urine Specific Gravity 1.003 (1.010-1.030); Urine Urobilinogen Negative (Negative)
[2019-06-16] MEDS ORDERED: NS 0.9% 1000 ML** 1,000 ML IV ONE ×2 (10:23→12:09)
[2019-06-16 14:33] LABS: BUN/Creatinine Ratio 7.3 (8-20); Calcium 7.8 mg/dL (8.6-10.3); EGFR Non-African American 18.2 (>60); Potassium 3.2 mmol/L (3.5-5.0)
[2019-06-16] MEDS: KCL 20 MEQ/100 ML IVPREMIX* 20 MEQ/100 ML BAG IV SCH ×2 (17:19→20:46)
[2019-06-16] MEDS ORDERED: Al Hydrox/Mg Hydrox/Simet LIQ* 30 ML UDC PO PRN (17:25)
[2019-06-16] MEDS ORDERED: Magnesium Hydroxide LIQ* 30 ML UDC PO PRN (17:25)
[2019-06-16] MEDS ORDERED: Acetaminophen TAB* 325 MG PO PRN (17:25)
[2019-06-16] MEDS: Heparin VIAL(*) 5000 UNITS/ML VIAL (FIVE THOUSAND) SUBCUT SCH (20:46)
[2019-06-16] MEDS: Pantoprazole TAB * 40 MG TAB PO SCH (20:47)
--- NOTE | 2019-06-16 21:34 | HP ---
CC: Dr. Curiel * HISTORY AND PHYSICAL: DATE OF ADMISSION: 06/16/19 PRIMARY CARE PROVIDER: Dr. Curiel. ATTENDING PHYSICIAN WHILE IN THE HOSPITAL: Dr. Toby Martin * (dictated by FRANK Chan). CHIEF COMPLAINT: Diarrhea and nausea and decreased appetite. HISTORY OF PRESENT ILLNESS: Mari Flood is a 73-year-old white female with past medical history significant for hypertension, hyperlipidemia, GERD, who presented to the emergency department due to severe abdominal pain yesterday in the right upper quadrant as well as ongoing intermittent nausea and diarrhea for the last week. The patient has had on and off diarrhea for the last week. She did have a formed bowel movement today. She started having intermittent nausea but for the last 2 days that has been persistent. She has not vomited. She had right upper quadrant pain that was a burning sensation yesterday and did not radiate. It has improved today but still intermittently present. She has not been eating much over this period of time but has been drinking. She and her granddaughter who she lives with endorsed that she drinks 5 plus water bottles per day and several laura ales. She saw Dr. Curiel in the office on Friday and he gave her prescription of Zofran, however, she tells me that the Zofran has not helped this nausea. It has been ongoing. She then was taking it approximately every 4 hours during the day and it was not useful to her. She denies hematochezia, melena, dizziness, lightheadedness, fever, chills, chest pain, difficulty breathing, or recent travel. She additionally denies sick contacts. The patient tells me that she has been adherent to her Protonix. The patient denies urinary retention, dysuria, hematuria, or low back pain. The patient tells me she has not been taking NSAIDs. She took Advil 1 time approximately 7 to 9 days ago. EMERGENCY DEPARTMENT COURSE: The patient arrived to the emergency department. Her vital signs were temperature 99.2, pulse rate 85, respiratory rate 16, oxygen saturation 97% on room air, blood pressure 141/86. She was given 1 L of normal saline and 4 mg IV Zosyn. Her creatinine was found to be 2.5 and the hospitalists were asked to evaluate the patient for admission. AST MEDICAL HISTORY: 1. Hypertension. 2. Hyperlipidemia. 3. GERD. PAST SURGICAL HISTORY: Tubal ligation, left breast biopsy. HOME MEDICATIONS: 1. Triamterene/hydrochlorothiazide 37.5/25 mg 1 cap p.o. daily. 2. Fish oil 1000 mg p.o. b.i.d. 3. Multivitamin 1 tab p.o. daily. 4. Aspirin 81 mg p.o. daily. 5. Protonix 40 mg p.o. b.i.d. 6. Losartan 100 mg p.o. daily. 7. Lipitor 40 mg p.o. daily. ALLERGIES: No known drug allergies. FAMILY HISTORY: Mother due to breast cancer with metastatic disease to the liver. Father's medical history is unknown. SOCIAL HISTORY: The patient is . She lives with her granddaughter and great grandchildren. She is a former smoker, had a total smoking history of approximately 10 years and quit smoking 30 years ago. She denies alcohol use and illicit drug use. 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 The patient's surrogate medical decision maker is her daughter, Chantell Isabel. Phone number is [phone]. REVIEW OF SYSTEMS: An 11-point review of systems was completed, all pertinent positives and negatives are above in the HPI, other systems are negative. PHYSICAL EXAMINATION GENERAL: Elderly white female, appears well developed, well nourished, lying upright in the hospital bed, appearing comfortable, in no acute distress. Daughter and granddaughter at bedside. HEENT: Eyes: PERRLA, sclerae anicteric. ENT: Mucous membranes appear moist. LUNGS: Clear to auscultation. CARDIO: Regular rate and rhythm without murmurs, rubs, or gallops. ABDOMEN: Normoactive bowel sounds x4 quadrants. Abdomen is soft, nontender, and nondistended. No epigastric tenderness. No hepatosplenomegaly appreciated. No hernias or masses appreciated. EXTREMITIES: No clubbing, cyanosis, or edema. NEURO: The patient is alert and oriented x3. No focal deficits. Able to move all extremities. No tremors. SKIN: Warm, dry, and intact. DIAGNOSTIC STUDIES/LAB DATA: Gallbladder ultrasound, impression: No evidence of cholelithiasis or biliary duct dilation is noted. White blood cell count of 5.8, hemoglobin 13.1, hematocrit 38, platelet count 221. Sodium 134, potassium 3.3, chloride 98, carbon dioxide 28, anion gap 8, BUN 20, creatinine 2.5, glucose 115, lactic acid 0.8, total bili 1.4. AST 16, ALT 20, alk phos 72. Urinalysis unremarkable. ASSESSMENT AND PLAN: Mari Flood is a 73-year-old white female with past medical history significant for hypertension, hyperlipidemia, and gastroesophageal reflux disease, who presented to the emergency department due to abdominal pain and ongoing nausea. The patient will be admitted OBV for: 1. Acute kidney injury: The patient has had intermittent diarrhea and intermittent nausea, but however, she has not been vomiting. She has had poor oral intake as far as food, but she and her family member tells me that she has been drinking quite a bit of water; however, this may not be sufficient to replace fluid loss in her diarrhea. It is quite possible this is prerenal. I will order fractional excretion of sodium as well as fractional excretion of creatinine to determine this. I have ordered continuous normal saline. We will get reevaluate this tomorrow. Urinalysis is negative. I have ordered renal ultrasound. This is pending at this time. I am holding the patient's losartan. I do not believe that this is medication related at this time. 2. Abdominal pain: The patient had a very severe abdominal pain yesterday, however, she is telling this has improved today. She did not receive pain medications in the hospital. The patient's gallbladder ultrasound is negative. It is possible this is like viral gastroenteritis, however, CT abdomen and pelvis was not performed due to her acute kidney injury preventing her from safely receiving IV contrast. If her kidney injury improves tomorrow, it would be of benefit as this did occur while she is still in the hospital. As such, if her symptoms are still continuing, I will order p.o. famotidine to see if this is of any benefit in addition to her Protonix. Bacterial infectious colitis appears low in the differential as she has not had persistent diarrhea, she is afebrile and without leukocytosis. 3. Hypertension: The patient is normotensive in the emergency department. I am holding her losartan as I previously mentioned. We will continue her home triamterene/hydrochlorothiazide. 4. Hyperlipidemia: I will continue her home Lipitor. She takes aspirin as primary prevention. I will continue this as well. 5. Gastroesophageal reflux disease: I will continue her on Protonix. I am starting famotidine as previously mentioned. 6. FEN: The patient has hypokalemia. I will replace this IV fluids as previously mentioned. The patient may have regular unrestricted diet. 7. Code status: The patient is okay with CPR but is do not resuscitate and MOLST has been updated. 8. DVT prophylaxis. The patient has a DVT risk score of 3 and I have ordered subcu heparin q.8. TIME SPENT: Approximately 45 minutes was spent on this admission, approximately half this time was spent at the bedside, evaluating the patient and discussing the plan of care. This case has been reviewed with my attending, Dr. Toby Martin; he agrees with this plan of care. FRANK CHAN [id number]/[facility] #: [id number] ISAREL
[2019-06-16 21:54] LABS: Urine Creatinine Concentration 21.78 mg/dL
[2019-06-17] MEDS: KCL 20 MEQ/100 ML IVPREMIX* 20 MEQ/100 ML BAG IV SCH (00:41)
[2019-06-17] MEDS: Heparin VIAL(*) 5000 UNITS/ML VIAL (FIVE THOUSAND) SUBCUT SCH ×3 (05:21→22:04)
[2019-06-17 06:09] LABS: ABS Lymphocytes 0.9 10^3/ul (1.0-4.8); ABS Monocytes 0.5 10^3/ul (0-0.8); ABS Neutrophils 5.1 10^3/ul (1.5-7.7); Eosinophil % 0.5 %; Hematocrit 35 % (35-47); Hemoglobin 12.5 g/dL (12.0-16.0); Lymphocyte % 13.4 %; Mean Corpuscular HGB Conc 36 g/dL (31-36); Mean Corpuscular Hemoglobin 30 pg (27-31); Mean Corpuscular Volume 86 fL (80-97); Platelet Count 199 10^3/uL (150-450); Red Blood Count 4.12 10^6 /uL (3.70-4.87); Red Cell Distribution Width 12 % (10-15); White Blood Count 6.5 10^3/uL (3.5-10.8)
[2019-06-17 06:36] LABS: Albumin 3.4 g/dL (3.2-5.2); Albumin/Globulin Ratio 1.7 (1-3); BUN/Creatinine Ratio 6.5 (8-20); Calcium 8.3 mg/dL (8.6-10.3); Potassium 3.9 mmol/L (3.5-5.0); Total Bilirubin 1.2 mg/dL (0.2-1.0); Total Protein 5.4 g/dL (6.4-8.9)
[2019-06-17] MEDS: Atorvastatin* 40 MG TAB PO SCH (08:18)
[2019-06-17] MEDS: Pantoprazole TAB * 40 MG TAB PO SCH (08:19)
[2019-06-17] MEDS: Multivitamins/Minerals TAB PO SCH (08:20)
[2019-06-17] MEDS: Famotidine TAB* 20 MG PO SCH (08:21)
[2019-06-17] MEDS ORDERED: Triamterene/HCTZ 37.5-25 MG* CAP PO SCH (09:00)
[2019-06-17] MEDS: NS 0.9% 1000 ML** 1,000 ML IV SCH ×2 (10:12→22:16)
--- NOTE | 2019-06-17 15:15 | CONSULT ---
Consult Consult: Consult requested for AMANDA. Consult requested by: Dr. Mya Lin, Hospitalist Performed by Dr. Malaika Martinez, [facility] Nephrology 06/17/2019 73 Y WF. Otherwise healthy with HTN on Losartan, Triamterene/HCTZ, admitted last night via ED, with fatigue, dry heaves and diarrhea. She c/c of vague abdominal pain. GB US negative. A week ago, she started having diarrhea and nausea. Diarrhea loose and frequent. She doesnt remember how many times she had diarrhea per day. She admitted few times of NSAIDs ingestion. She is PPIs BID for long time. She was made aware of possible PPIs nephrotoxicity. Denied Rash. No bloody stools. No sick contacts, or recent travel. She admitted decreased appetite, decreased fluid intake, and possibly decreased UOP. No SOB or edema. BUN/sCr 20/2.50~06/16, worse today 21/3.24~06/17. Shes on IVF. UOP is better Denied CP recent sore throat or URTI. Of note, UA is bland. No peripheral eosinophilia or rash. Denied Herbal remedies. Baseline sCr 0.61~04/2019 No fever, and no recent ABx. PMH: HTN Borderline DM HomeMeds: Medication Instructions Recorded Confirmed Type Aspirin [Aspirin Adult Low Dose] 81 mg PO DAILY 01/12/15 06/16/19 History Pantoprazole TAB * [Protonix TAB 40 mg PO BID 01/12/15 06/16/19 History (NF)] Losartan Potassium 100 mg PO DAILY 08/14/17 06/16/19 History Parsons-3/Dha/Epa/Fish Oil [Fish Oil] 1,000 mg PO BID 08/14/17 06/16/19 History Atorvastatin* [Lipitor*] 40 mg PO DAILY 06/16/19 06/16/19 History Multivitamins/Minerals TAB* 1 tab PO DAILY 06/16/19 06/16/19 History [Theragran/minerals TAB*] Triamterene/HCTZ 37.5-25 MG* 1 cap PO DAILY 06/16/19 06/16/19 History [Dyazide CAP*] Hospital Meds: Acetaminophen (Tylenol Tab*) 650 mg PO Q4H PRN PRN Reason: MILD PAIN or TEMP > 100.4 Al Hydrox/Mg Hydrox/Simethicone (Maalox Plus*) 30 ml PO Q6H PRN PRN Reason: INDIGESTION Atorvastatin Calcium (Lipitor*) 40 mg PO DAILY [facility] Last Admin: 06/17/19 08:18 Dose: 40 mg Famotidine (Pepcid Tab*) 10 mg PO DAILY [facility] Last Admin: 06/17/19 08:21 Dose: 10 mg Heparin Sodium (Porcine) (Heparin Vial(*)) 5,000 units SUBCUT Q8HR [facility] Last Admin: 06/17/19 05:21 Dose: 5,000 units Sodium Chloride (Ns 0.9% 1000 Ml) 1,000 mls @ 100 mls/hr IV PER RATE [facility] Last Admin: 06/17/19 10:12 Dose: 100 mls/hr Magnesium Hydroxide (Milk Of Magnmisael Liq*) 30 ml PO Q4H PRN PRN Reason: CONSTIPATION Multivitamins/Minerals (Theragran/Minerals Tab*) 1 tab PO DAILY [facility] Last Admin: 06/17/19 08:20 Dose: 1 tab Ondansetron HCl (Zofran Inj*) 4 mg IV Q4H PRN PRN Reason: NAUSEA/VOMITING Allergies No Known Allergies Allergy (Verified 06/16/19 08:22) Social History: Denied Alcohol, smoking. No IVDA. Retired. Lives with her granddaughter. Family History: Negative for Dialysis, ESRD or Renal Transplant. Positive for HTN & DM Surgical History:Negative except skin lesions 12-Point Review of System obtained: Constitutional: as above Eyes No blurry vision. No red eye CV: No SOB at rest or exertion, no chest pain no syncope or edema Respiratory: No SOB at rest no cough no wheezing G.I: diarrhea, slightly better non bloody, severe nausea no vomiting no pain no blood per rectum no burning no obstruction symptoms Skin no rash Neurology No seizures or neurological deficit Endocrine borderline diabetes, no heat or cold intolerance Hem/Lymphatic no bleeding no lymph nodes swelling Immune/Allergy no allergic reactions Musculoskeletal: No arthritis, no swelling Psych no anxiety no depression no hallucination Objective: 10 Point multi system exam: Constitutional Alert Oriented x 3 HEENT: No Conjunctivitis Abdomen Soft Abdomen No Ascites Heart: NSR, No LE Edema, No murmur Lungs: Clear to auscultation Extremities: No edema, no rash Skin no rash Neurology No deficit. CN intact Hem/Lymph: no palpable lymph nodes Musculoskeletal: No joint swelling Laboratory Reviewed Sodium 138 mmol/L (135-145) 06/17/19 05:48 Potassium 3.9 mmol/L (3.5-5.0) 06/17/19 05:48 BUN 21 mg/dL (6-24) 06/17/19 05:48 Creatinine 3.24 mg/dL (0.51-0.95) H 06/17/19 05:48 Calcium 8.3 mg/dL (8.6-10.3) L 06/17/19 05:48 Magnesium 1.9 mg/dL (1.9-2.7) 06/16/19 08:37 AST 14 U/L (13-39) 06/17/19 05:48 ALT 14 U/L (7-52) 06/17/19 05:48 Imaging: Renal U/S:Normal Renal US Assessment and Plan: AMANDA, Likely ATN, from prolonged GI fluid loss. No indication for VAMP MAKER. She had GI losses while on ARB Losartan & Diuretics HCTZ/Triamterene UA [place]. No GN & I doubt AIN, but AIN is still possible in view of Hx of PPIs. Advise stopping PPIs. Advise SPEP & FLC to r/o Myeloma Outflow obstruction was ruled out. Continue IVF Electrolytes Ok She was informed about lab/radiology results & prognosis. All questions were answered. She was made part of the treatment plan.
--- NOTE | 2019-06-17 18:04 | PN ---
Subjective Date of Service: 06/17/19 Interval History: Ms. Flood states that she has been ill for approximately 13 days. She has had nausea this whole time, as well as retching, without vomiting. She has had diarrhea frequently, as well, without blood or melena. She has no abdominal pain, but describes a "churning" sensation in the stomach. She has RUQ pain yesterday, but none now. She denies vision changes, except some mild blurred vision when she reads too much. She denies fevers, chills, night sweats. She has had a 6# weight loss in last 13 days, attributing this to diarrhea, decreased appetite and PO intake. She has not had antibiotics or medications changes in over 1 year. Most recent medications was Dyazide, which was prescribed within the last year. Objective Active Medications: Acetaminophen (Tylenol Tab*) 650 mg PO Q4H PRN PRN Reason: MILD PAIN or TEMP > 100.4 Al Hydrox/Mg Hydrox/Simethicone (Maalox Plus*) 30 ml PO Q6H PRN PRN Reason: INDIGESTION Atorvastatin Calcium (Lipitor*) 40 mg PO DAILY [facility] Last Admin: 06/17/19 08:18 Dose: 40 mg Famotidine (Pepcid Tab*) 10 mg PO DAILY [facility] Last Admin: 06/17/19 08:21 Dose: 10 mg Heparin Sodium (Porcine) (Heparin Vial(*)) 5,000 units SUBCUT Q8HR [facility] Last Admin: 06/17/19 15:27 Dose: 5,000 units Sodium Chloride (Ns 0.9% 1000 Ml) 1,000 mls @ 100 mls/hr IV PER RATE [facility] Last Admin: 06/17/19 10:12 Dose: 100 mls/hr Magnesium Hydroxide (Milk Of Magnesia Liq*) 30 ml PO Q4H PRN PRN Reason: CONSTIPATION Multivitamins/Minerals (Theragran/Minerals Tab*) 1 tab PO DAILY [facility] Last Admin: 06/17/19 08:20 Dose: 1 tab Ondansetron HCl (Zofran Inj*) 4 mg IV Q4H PRN PRN Reason: NAUSEA/VOMITING Vital Signs: Temp Pulse Resp BP Pulse Ox 98.4 F 66 18 113/56 97 06/17/19 15:15 06/17/19 15:15 06/17/19 15:15 06/17/19 15:15 06/17/19 15:15 Oxygen Devices in Use Now: None Appearance: Ms. Flood is an older white female who is somewhat overweight. She appears well and is pleasant and cooperative. She appears to be in no acute distress. Eyes: No Scleral Icterus, PERRLA, - - No scleral injection Ears/Nose/Mouth/Throat: NL Teeth, Lips, Gums, Clear Oropharnyx, Mucous Membranes Moist Neck: NL Appearance and Movements; NL JVP, Trachea Midline Respiratory: Symmetrical Chest Expansion and Respiratory Effort, Clear to Auscultation Cardiovascular: NL Sounds; No Murmurs; No JVD, RRR, No Edema Abdominal: NL Sounds; No Tenderness; No Distention, No Hepatosplenomegaly Extremities: No Edema, No Clubbing, Cyanosis Skin: No Rash or Ulcers, No Nodules or Sclerosis Neurological: Alert and Oriented x 3 Result Diagrams: 06/17/19 05:48 06/17/19 05:48 Assess/Plan/Problems-Billing Assessment: 73 yof PMHx HTN, HLD, GERD presens with decreased appetite, nausea, diarrhea, found to have AMANDA. - Patient Problems (1) Acute kidney injury Comment: -pt with AMANDA that is worsening, despite IVF -US without hydro, obstruction -FeNA suggests prerenal -UA without protein, blood; BP WNL; do no suspect GN -no recent antibiotics; most recent new med is Dyazide approximately 1 year ago -no s/s AI d/o -continue to hold Dyazide and losartan -continue IVF -nephrology has been consulted; thank you for recommendations -stop PPI as it may cause AIN -SPEP, free light chains ordered (2) Diarrhea Comment: -pt with 13d nausea, intermittent retching, diarrhea -had RUQ pain yesterday- US without cholelith, bile duct dilation -unable to obtain CT abd/pel d/t AMANDA -suspect gastroenteritis -continue supportive care with IVF; transition to low residue/bland diet and advance as tolerated (3) Hypertension Comment: -SBP 110-120's -continue to hold Dyazide, Losartan (4) Hyperlipidemia Comment: -continue statin (5) GERD (gastroesophageal reflux disease) Comment: -d/c PPI -continue famotidine (6) DVT prophylaxis Comment: -herparin (7) DNR (do not resuscitate) Status and Disposition: Inpatient. Discharge when stable.
[2019-06-17] MEDS: Ondansetron INJ* 2 MG/ML VIAL IV PRN (22:03)
[2019-06-18] MEDS: Heparin VIAL(*) 5000 UNITS/ML VIAL (FIVE THOUSAND) SUBCUT SCH ×3 (06:17→20:52)
[2019-06-18] MEDS: Ondansetron INJ* 2 MG/ML VIAL IV PRN (06:18)
[2019-06-18 06:24] LABS: Albumin 3.2 g/dL (3.2-5.2); Albumin/Globulin Ratio 1.6 (1-3); BUN/Creatinine Ratio 7.1 (8-20); Calcium 8.1 mg/dL (8.6-10.3); EGFR African American 16.9 (>60); Potassium 3.7 mmol/L (3.5-5.0); Total Bilirubin 0.8 mg/dL (0.2-1.0); Total Protein 5.2 g/dL (6.4-8.9)
[2019-06-18] MEDS: NS 0.9% 1000 ML** 1,000 ML IV SCH (08:21)
[2019-06-18] MEDS: Atorvastatin* 40 MG TAB PO SCH (08:23)
[2019-06-18] MEDS: Multivitamins/Minerals TAB PO SCH (08:23)
[2019-06-18] MEDS: Famotidine TAB* 20 MG PO SCH (08:23)
[2019-06-18] MEDS ORDERED: Lactated Ringers 1000 ML Bag* 1,000 ML IV SCH (11:00)
[2019-06-18] MEDS ORDERED: NS 0.9% 1000 ML** 1,000 ML IV SCH (11:00)
--- NOTE | 2019-06-18 11:06 | PN ---
Subjective Date of Service: 06/18/19 Interval History: Patient is feeling improved today. She requests to continue clear liquid diet because she doesn't want to upset her stomach. She tolerated breakfast well but she had zofran at approx 6 AM. She had one formed BM today. Denies diarrhea, abd pain, nausea, vomiting, chest pain, difficulty breathing. Objective Active Medications: Acetaminophen (Tylenol Tab*) 650 mg PO Q4H PRN PRN Reason: MILD PAIN or TEMP > 100.4 Al Hydrox/Mg Hydrox/Simethicone (Maalox Plus*) 30 ml PO Q6H PRN PRN Reason: INDIGESTION Atorvastatin Calcium (Lipitor*) 40 mg PO DAILY [facility] Last Admin: 06/18/19 08:23 Dose: 40 mg Famotidine (Pepcid Tab*) 10 mg PO DAILY [facility] Last Admin: 06/18/19 08:23 Dose: 10 mg Heparin Sodium (Porcine) (Heparin Vial(*)) 5,000 units SUBCUT Q8HR [facility] Last Admin: 06/18/19 06:17 Dose: 5,000 units Lactated Ringer's (Lactated Ringers 1000 Ml Bag*) 1,000 mls @ 100 mls/hr IV PER RATE [facility] Magnesium Hydroxide (Milk Of Magnesia Liq*) 30 ml PO Q4H PRN PRN Reason: CONSTIPATION Multivitamins/Minerals (Theragran/Minerals Tab*) 1 tab PO DAILY [facility] Last Admin: 06/18/19 08:23 Dose: 1 tab Ondansetron HCl (Zofran Inj*) 4 mg IV Q4H PRN PRN Reason: NAUSEA/VOMITING Last Admin: 06/18/19 06:18 Dose: 4 mg Vital Signs - 8 hr 06/18/19 06/18/19 06/18/19 03:03 07:15 08:00 Temperature 99.1 F 98.4 F Pulse Rate 64 64 Respiratory 20 16 16 Rate Blood Pressure 132/65 125/60 (mmHg) O2 Sat by Pulse 99 96 Oximetry Oxygen Devices in Use Now: None Appearance: Elderly white female who appears younger than stated age, sitting upright on edge of bed, appearing comfortable and in NAD Eyes: No Scleral Icterus, - - PERRL Ears/Nose/Mouth/Throat: Mucous Membranes Moist Neck: NL Appearance and Movements; NL JVP Respiratory: Symmetrical Chest Expansion and Respiratory Effort, Clear to Auscultation Cardiovascular: NL Sounds; No Murmurs; No JVD, RRR Abdominal: NL Sounds; No Tenderness; No Distention Extremities: No Edema, No Clubbing, Cyanosis Skin: No Rash or Ulcers Neurological: Alert and Oriented x 3, NL Muscle Strength and Tone Result Diagrams: 06/17/19 05:48 06/18/19 05:27 Assess/Plan/Problems-Billing Assessment: 73 yof PMHx HTN, HLD, GERD presengs with decreased appetite, nausea, diarrhea, found to have AMANDA. - Patient Problems (1) Acute kidney injury Current Visit: Yes Status: Acute Code(s): N17.9 - ACUTE KIDNEY FAILURE, UNSPECIFIED SNOMED Code(s): 73277495 Comment: -US without hydro, obstruction of left kidney; right kidney was not imaged for unclear reasons -FeNA suggests prerenal which is consistent with fluid loss in setting of diarrhea progressing to ATN -UA without protein, blood; BP WNL; do no suspect GN -no recent antibiotics; most recent new med is Dyazide approximately 1 year ago -nephrology has been consulted; Dr. Martinez recommends stopping PPI as it may cause AIN -SPEP, free light chains pending -continue to hold Dyazide and losartan -continue IVF at lower rate per Dr. Martinez -BUN/Cr plateaued today (2) Diarrhea Current Visit: Yes Status: Acute Code(s): R19.7 - DIARRHEA, UNSPECIFIED SNOMED Code(s): 22431545 Comment: -presented with 13d nausea, intermittent retching, diarrhea -gall bladderUS without cholelith, bile duct dilation -unable to obtain CT Abdomen/pelvis d/t AMANDA -suspect viral gastroenteritis -continue supportive care with IVF -continuing clear liquid diet per request of patient though she is tolerating, will attempt to advance -diarrhea resolved thus far today (3) GERD (gastroesophageal reflux disease) Current Visit: Yes Status: Acute Code(s): K21.9 - GASTRO-ESOPHAGEAL REFLUX DISEASE WITHOUT ESOPHAGITIS SNOMED Code(s): 979990078 Comment: -d/c PPI -continue famotidine (4) Hypertension Current Visit: Yes Status: Acute Code(s): I10 - ESSENTIAL (PRIMARY) HYPERTENSION SNOMED Code(s): 48563484 Comment: -normotensive -continue to hold Dyazide, Losartan in setting of AMANDA (5) Hyperlipidemia Current Visit: Yes Status: Acute Code(s): E78.5 - HYPERLIPIDEMIA, UNSPECIFIED SNOMED Code(s): 46669819 Comment: -continue statin (6) DNR (do not resuscitate) Current Visit: Yes Status: Acute (7) DVT prophylaxis Current Visit: Yes Status: Acute Code(s): Z29.9 - ENCOUNTER FOR PROPHYLACTIC MEASURES, UNSPECIFIED SNOMED Code(s): 328404122 Comment: -herparin Status and Disposition: Inpatient. Anticipate discharge home when stable.
[2019-06-18 14:25] LABS: Magnesium 2.1 mg/dL (1.9-2.7)
--- NOTE | 2019-06-18 15:15 | PN ---
Progress Note - Progress Note Date of Service: 06/18/19 Note: Nephrology Follow Up Note. Performed by Dr. Malaika Martinez, [facility] Nephrology 06/18/2019 73 Y WF, was on Losartan, Triamterene/HCTZ, s/p a week long episodes of diarrhea and nausea. She admitted few NSAIDs & PPIs BID. BUN/sCr 23/3.25~06/18/2019 was 21/3.24~06/17. Shes on IVF. UOP is better BUN/sCr was 20/2.50~06/16, worse today Baseline sCr 0.61~04/2019 Hospital Meds: Acetaminophen (Tylenol Tab*) 650 mg PO Q4H PRN PRN Reason: MILD PAIN or TEMP > 100.4 Al Hydrox/Mg Hydrox/Simethicone (Maalox Plus*) 30 ml PO Q6H PRN PRN Reason: INDIGESTION Atorvastatin Calcium (Lipitor*) 40 mg PO DAILY [facility] Last Admin: 06/18/19 08:23 Dose: 40 mg Famotidine (Pepcid Tab*) 10 mg PO DAILY [facility] Last Admin: 06/18/19 08:23 Dose: 10 mg Heparin Sodium (Porcine) (Heparin Vial(*)) 5,000 units SUBCUT Q8HR [facility] Last Admin: 06/18/19 13:02 Dose: 5,000 units Sodium Chloride (Ns 0.9% 1000 Ml) 1,000 mls @ 100 mls/hr IV PER RATE [facility] Magnesium Hydroxide (Milk Of Magnesia Liq*) 30 ml PO Q4H PRN PRN Reason: CONSTIPATION Multivitamins/Minerals (Theragran/Minerals Tab*) 1 tab PO DAILY [facility] Last Admin: 06/18/19 08:23 Dose: 1 tab Ondansetron HCl (Zofran Inj*) 4 mg IV Q4H PRN PRN Reason: NAUSEA/VOMITING Last Admin: 06/18/19 06:18 Dose: 4 mg Laboratory Reviewed Sodium 141 mmol/L (135-145) 06/18/19 05:27 Potassium 3.7 mmol/L (3.5-5.0) 06/18/19 05:27 BUN 23 mg/dL (6-24) 06/18/19 05:27 Creatinine 3.25 mg/dL (0.51-0.95) H 06/18/19 05:27 Calcium 8.1 mg/dL (8.6-10.3) L 06/18/19 05:27 Magnesium 2.1 mg/dL (1.9-2.7) 06/18/19 05:27 AST 12 U/L (13-39) L 06/18/19 05:27 ALT 12 U/L (7-52) 06/18/19 05:27 Assessment and Plan: AMANDA, Likely ATN, from prolonged GI fluid loss, while on Losartan & HCTZ/ Triamterene. No indication for DUCT MAKER. sCr plateaued, will f/u. UA [place]. Good news. Off PPIs. Decrease IVF Electrolytes Ok She was informed about lab/radiology results & prognosis. All questions were answered. She was made part of the treatment plan.
[2019-06-19] MEDS: NS 0.9% 1000 ML** 1,000 ML IV SCH ×2 (02:25→12:14)
[2019-06-19] MEDS: Heparin VIAL(*) 5000 UNITS/ML VIAL (FIVE THOUSAND) SUBCUT SCH ×3 (04:41→20:18)
[2019-06-19] MEDS: Famotidine TAB* 20 MG PO SCH (08:16)
[2019-06-19] MEDS: Multivitamins/Minerals TAB PO SCH (08:16)
[2019-06-19] MEDS: Atorvastatin* 40 MG TAB PO SCH (08:16)
[2019-06-19] MEDS: Ondansetron INJ* 2 MG/ML VIAL IV PRN ×2 (09:08→17:57)
--- NOTE | 2019-06-19 09:30 | PN ---
Subjective Date of Service: 06/19/19 Interval History: Ms. Flood had two episodes of diarrhea but has had none since. She has been advanced to soft diet and is tolerating it well. She denies other complaint including chest pain, SOB, nausea, abdominal pain. Objective Active Medications: Acetaminophen (Tylenol Tab*) 650 mg PO Q4H PRN Al Hydrox/Mg Hydrox/Simethicone (Maalox Plus*) 30 ml PO Q6H PRN Atorvastatin Calcium (Lipitor*) 40 mg PO DAILY ZEINAB Famotidine (Pepcid Tab*) 10 mg PO DAILY ZEINAB Heparin Sodium (Porcine) (Heparin Vial(*)) 5,000 units SUBCUT Q8HR ZEINAB Sodium Chloride (Ns 0.9% 1000 Ml) 1,000 mls @ 75 mls/hr IV PER RATE ZEINAB Magnesium Hydroxide (Milk Of Magnesia Liq*) 30 ml PO Q4H PRN Multivitamins/Minerals (Theragran/Minerals Tab*) 1 tab PO DAILY ZE[facility] Ondansetron HCl (Zofran Inj*) 4 mg IV Q4H PRN Vital Signs: Temp Pulse Resp BP Pulse Ox 98.4 F 64 16 136/63 96 06/19/19 07:18 06/19/19 07:18 06/19/19 08:00 06/19/19 07:18 06/19/19 07:18 Oxygen Devices in Use Now: None Appearance: Female lying in bed in NAD Eyes: No Scleral Icterus Ears/Nose/Mouth/Throat: Mucous Membranes Moist Neck: Trachea Midline Respiratory: Symmetrical Chest Expansion and Respiratory Effort, Clear to Auscultation Cardiovascular: NL Sounds; No Murmurs; No JVD, No Edema Abdominal: NL Sounds; No Tenderness; No Distention Extremities: No Edema Skin: No Rash or Ulcers Neurological: Alert and Oriented x 3, NL Muscle Strength and Tone Nutrition: Taking PO's Result Diagrams: 06/17/19 05:48 06/19/19 10:28 Assess/Plan/Problems-Billing Assessment: Ms. Flood is a 73 yof PMHx HTN, HLD, GERD presents with decreased appetite, nausea, diarrhea, found to have AMANDA. - Patient Problems (1) Diarrhea Comment: - Resolving, tolerating clear liquids, advance diet. - Suspected due to viral gastroenteritis, as she is stable will add immodium - Presented with 13d nausea, intermittent retching, diarrhea. Gall bladder US without cholelith, bile duct dilation. Unable to obtain CT Abdomen/pelvis d/t AMANDA. (2) Acute kidney injury Comment: - Creatinine improved today - FeNA suggests prerenal which is consistent with fluid loss in setting of diarrhea progressing to ATN - US without hydro, obstruction of left kidney; right kidney was not imaged for unclear reasons. UA without protein, blood; BP WNL; do no suspect GN. No recent antibiotics; most recent new med is Dyazide approximately 1 year ago. - Nephrology consult appreciated; Dr. Martinez recommends stopping PPI as it may cause AIN. SPEP, free light chains pending. Continue to hold dyazide and losartan. Continue IVF. (3) Hypertension Comment: - Normotensive - Continue to hold triamterine/hctz and losartan (4) GERD (gastroesophageal reflux disease) Comment: - D/C PPI - Continue famotidine (5) Hyperlipidemia Comment: - Continue statin (6) DVT prophylaxis Comment: - Heparin (7) DNR (do not resuscitate) Comment: Status and Disposition: Inpatient. Anticipate discharge home when stable.
[2019-06-19] MEDS ORDERED: Loperamide CAP* 2 MG PO PRN (10:04)
[2019-06-19 11:34] LABS: BUN/Creatinine Ratio 6.9 (8-20); Calcium 8.4 mg/dL (8.6-10.3); EGFR African American 19.3 (>60); Potassium 3.3 mmol/L (3.5-5.0)
[2019-06-19 11:36] LABS: Albumin 3.5 g/dL (3.2-5.2); BUN/Creatinine Ratio 6.5 (8-20); Calcium 8.4 mg/dL (8.6-10.3); EGFR African American 19.1 (>60); EGFR Non-African American 15.8 (>60); Phosphorus 3.1 mg/dL (2.5-5.0); Potassium 3.3 mmol/L (3.5-5.0)
--- NOTE | 2019-06-19 13:02 | PN ---
Progress Note - Progress Note Date of Service: 06/19/19 Note: Nephrology Follow Up Note. Performed by Dr. Malaika Martinez, [facility] Nephrology 06/19/2019 73 Y WF, was on Losartan, Triamterene/HCTZ, s/p a week long episodes of diarrhea and nausea. She admitted few NSAIDs & PPIs BID. Diarrhea is better but had 2 episodes today. N Vomiting. Occasional Nausea BUN/sCr 2.59~06/16/2019 21/3.24~06/17/2019 23/3.25~06/18/2019 20/2.90~06/19/2019 Baseline sCr 0.61~04/2019 Hospital Meds: Acetaminophen (Tylenol Tab*) 650 mg PO Q4H PRN PRN Reason: MILD PAIN or TEMP > 100.4 Al Hydrox/Mg Hydrox/Simethicone (Maalox Plus*) 30 ml PO Q6H PRN PRN Reason: INDIGESTION Atorvastatin Calcium (Lipitor*) 40 mg PO DAILY [facility] Last Admin: 06/19/19 08:16 Dose: 40 mg Famotidine (Pepcid Tab*) 10 mg PO DAILY [facility] Last Admin: 06/19/19 08:16 Dose: 10 mg Heparin Sodium (Porcine) (Heparin Vial(*)) 5,000 units SUBCUT Q8HR [facility] Last Admin: 06/19/19 04:41 Dose: 5,000 units Sodium Chloride (Ns 0.9% 1000 Ml) 1,000 mls @ 75 mls/hr IV PER RATE [facility] Last Admin: 06/19/19 12:14 Dose: 75 mls/hr Loperamide HCl (Imodium Cap*) 2 mg PO .SEE DIRECTIONS PRN PRN Reason: DIARRHEA Magnesium Hydroxide (Milk Of Magnesia Liq*) 30 ml PO Q4H PRN PRN Reason: CONSTIPATION Multivitamins/Minerals (Theragran/Minerals Tab*) 1 tab PO DAILY [facility] Last Admin: 06/19/19 08:16 Dose: 1 tab Ondansetron HCl (Zofran Inj*) 4 mg IV Q4H PRN PRN Reason: NAUSEA/VOMITING Last Admin: 06/19/19 09:08 Dose: 4 mg Laboratory Reviewed Sodium 144 mmol/L (135-145) 06/19/19 10:28 Potassium 3.3 mmol/L (3.5-5.0) L 06/19/19 10:28 BUN 20 mg/dL (6-24) 06/19/19 10:28 Creatinine 2.90 mg/dL (0.51-0.95) H 06/19/19 10:28 Calcium 8.4 mg/dL (8.6-10.3) L 06/19/19 10:28 Magnesium 2.1 mg/dL (1.9-2.7) 06/18/19 05:27 AST 12 U/L (13-39) L 06/18/19 05:27 ALT 12 U/L (7-52) 06/18/19 05:27 Assessment and Plan: AMANDA, Likely ATN, from prolonged GI fluid loss, while on Losartan & HCTZ/ Triamterene. BUN/sCr improving for the 1st time since admission. Avoid NSAIDs & PPIs. May continue IVF, as she just started eating solid food today, and had 2 episodes of diarrhea today. Hypokalemia 3.3, replace with KCl She was informed about lab/radiology results & prognosis. All questions were answered. She was made part of the treatment plan.
[2019-06-19] MEDS ORDERED: Potassium Chlor TAB* 20 MEQ TAB.ER PO ONE (17:37)
[2019-06-20] MEDS: NS 0.9% 1000 ML** 1,000 ML IV SCH ×2 (02:47→17:48)
[2019-06-20] MEDS: Heparin VIAL(*) 5000 UNITS/ML VIAL (FIVE THOUSAND) SUBCUT SCH ×3 (06:40→22:16)
[2019-06-20] MEDS: Ondansetron INJ* 2 MG/ML VIAL IV PRN ×2 (06:52→17:48)
[2019-06-20 07:12] LABS: BUN/Creatinine Ratio 6.5 (8-20); Calcium 8.1 mg/dL (8.6-10.3); EGFR African American 21.6 (>60); EGFR Non-African American 17.9 (>60); Potassium 3.5 mmol/L (3.5-5.0)
--- NOTE | 2019-06-20 07:21 | PN ---
Subjective Date of Service: 06/20/19 Interval History: Ms. Flood reports that she continues to have nausea and inability to tolerate oral intake. Her diarrhea is mild and unchanged. She denies abdominal pain. I reviewed the history of her GI complaints again today. She notes a long history of GERD for which she had an upper endoscopy with Dr Rg in 2014, negative except for mild esophagitis. For this she has been on pantoprazole BID. About two weeks ago she developed diarrhea, never more than 2-4 episodes a day, no abdominal pain. The diarrhea was mild and she has been more bothered by persistent nausea and inability to tolerate oral intake. She denies vomiting. She reports a feeling of fullness and choking, food tastes bad. She tried modifying her diet (BRAT) but this did not help. After several days of poor intake, she was "wiped out" and stayed in bed for two days, again with constant complaint of nausea. She saw per PCP on Friday prior to admission and was given zofran and told she likely had a viral gastritis. Zofran was not helpful. She remained nauseated and became weaker until she came to the ER on Friday. She reports that her symptoms remain unchanged today. Objective Active Medications: Acetaminophen (Tylenol Tab*) 650 mg PO Q4H PRN Al Hydrox/Mg Hydrox/Simethicone (Maalox Plus*) 30 ml PO Q6H PRN Atorvastatin Calcium (Lipitor*) 40 mg PO DAILY Z[facility] Famotidine (Pepcid Tab*) 10 mg PO DAILY ZEINAB Heparin Sodium (Porcine) (Heparin Vial(*)) 5,000 units SUBCUT Q8HR ZEINAB Sodium Chloride (Ns 0.9% 1000 Ml) 1,000 mls @ 75 mls/hr IV PER RATE ZEINAB Loperamide HCl (Imodium Cap*) 2 mg PO .SEE DIRECTIONS PRN Magnesium Hydroxide (Milk Of Magnesia Liq*) 30 ml PO Q4H PRN Multivitamins/Minerals (Theragran/Minerals Tab*) 1 tab PO DAILY ZE[facility] Ondansetron HCl (Zofran Inj*) 4 mg IV Q4H PRN Vital Signs: Temp Pulse Resp BP Pulse Ox 98.4 F 63 16 148/67 93 06/20/19 06:34 06/20/19 06:34 06/20/19 07:11 06/20/19 06:34 06/20/19 06:34 Oxygen Devices in Use Now: None Appearance: Female lying in bed in NAD Eyes: No Scleral Icterus Ears/Nose/Mouth/Throat: Mucous Membranes Moist Neck: Trachea Midline Respiratory: Symmetrical Chest Expansion and Respiratory Effort, Clear to Auscultation Cardiovascular: NL Sounds; No Murmurs; No JVD, No Edema Abdominal: NL Sounds; No Tenderness; No Distention, No Hepatosplenomegaly, - - BS + x 4 Extremities: No Edema Skin: No Rash or Ulcers Neurological: Alert and Oriented x 3, NL Muscle Strength and Tone Nutrition: Taking PO's Result Diagrams: 06/17/19 05:48 06/20/19 06:32 Assess/Plan/Problems-Billing Assessment: Ms. Flood is a 73 yof PMHx HTN, HLD, GERD presents with decreased appetite, nausea, diarrhea, found to have AMANDA. - Patient Problems (1) Acute kidney injury Comment: - Creatinine continues to improve - FeNA suggests prerenal which is consistent with fluid loss in setting of diarrhea progressing to ATN - US without hydro, obstruction of left kidney; right kidney was not imaged for unclear reasons. UA without protein, blood; BP WNL; do no suspect GN. No recent antibiotics; most recent new med is Dyazide approximately 1 year ago. - Nephrology consult appreciated; Dr. Martinez recommends stopping PPI as it may cause AIN. SPEP, free light chains pending. Continue to hold dyazide and losartan. Continue IVF. (2) Nausea Comment: - Patient has persistent nausea x over two weeks. Hx of GERD and hiatal hernia - Last upper endoscopy in 2014 found mild esophagitis only. Colonoscopy 07/2018 was negative. - Xray abd negative, GB US negative. GI consulted, plan for upper endoscopy tomorrow. - Reglan and zofran ineffective. Trial of compazine started. (3) Diarrhea Comment: - Unchanged, mild - Gall bladder US without cholelith, bile duct dilation. Unable to obtain CT abdomen/pelvis d/t AMANDA. (4) Hypertension Comment: - Normotensive - Continue to hold triamterine/hctz and losartan (5) GERD (gastroesophageal reflux disease) Comment: - D/C PPI - Continue famotidine (6) Hyperlipidemia Comment: - Continue statin (7) DVT prophylaxis Comment: - Heparin (8) DNR (do not resuscitate) Comment: Status and Disposition: Inpatient. Anticipate discharge home when stable.
[2019-06-20] MEDS ORDERED: Metoclopramide TAB* 10 MG PO PRN (09:38)
[2019-06-20] MEDS: Multivitamins/Minerals TAB PO SCH (09:45)
[2019-06-20] MEDS: Atorvastatin* 40 MG TAB PO SCH ×2 (10:00→17:48)
[2019-06-20] MEDS: Famotidine TAB* 20 MG PO SCH (10:03)
[2019-06-20] MEDS: PROCHLORPERAZINE INJ 5 MG/ML 2 ML VIAL IV PRN (15:07)
[2019-06-21] MEDS: Heparin VIAL(*) 5000 UNITS/ML VIAL (FIVE THOUSAND) SUBCUT SCH ×3 (05:59→21:23)
[2019-06-21 06:19] LABS: ABS Eosinophils 0.1 10^3/ul (0-0.6); ABS Lymphocytes 0.9 10^3/ul (1.0-4.8); ABS Monocytes 0.4 10^3/ul (0-0.8); ABS Neutrophils 4.2 10^3/ul (1.5-7.7); Eosinophil % 2.2 %; Hematocrit 31 % (35-47); Hemoglobin 10.9 g/dL (12.0-16.0); Lymphocyte % 15.5 %; Mean Corpuscular HGB Conc 35 g/dL (31-36); Mean Corpuscular Hemoglobin 30 pg (27-31); Mean Corpuscular Volume 86 fL (80-97); Mean Platelet Volume 7.3 fL (7.4-10.4); Platelet Count 209 10^3/uL (150-450); Red Blood Count 3.61 10^6 /uL (3.70-4.87); Red Cell Distribution Width 13 % (10-15); White Blood Count 5.7 10^3/uL (3.5-10.8)
[2019-06-21 06:35] LABS: BUN/Creatinine Ratio 5.2 (8-20); C Reactive Protein 16.46 mg/L (<8.01); Calcium 8.2 mg/dL (8.6-10.3); EGFR African American 23.1 (>60); EGFR Non-African American 19.1 (>60); Potassium 3.2 mmol/L (3.5-5.0)
[2019-06-21] MEDS: NS 0.9% 1000 ML** 1,000 ML IV SCH (07:16)
[2019-06-21] MEDS: PROCHLORPERAZINE INJ 5 MG/ML 2 ML VIAL IV PRN (07:16)
[2019-06-21] MEDS: Multivitamins/Minerals TAB PO SCH (10:11)
[2019-06-21] MEDS: Famotidine TAB* 20 MG PO SCH (10:11)
[2019-06-21] MEDS: Ondansetron INJ* 2 MG/ML VIAL IV PRN (10:35)
[2019-06-21 13:20] LABS: Kappa Free Light Chain 2.53 mg/dL; Lambda Free Light Chain 1.53 mg/dL
[2019-06-21] MEDS ORDERED: fentaNYL* 50 MCG/ML 2 ML VIAL (100 MCG VIAL) ONE (14:08)
[2019-06-21] MEDS ORDERED: Midazolam* 1 MG/ML 10 ML VIAL (10 MG) ONE (14:08)
--- NOTE | 2019-06-21 15:10 | PN ---
Progress Note - Progress Note Date of Service: 06/21/19 Note: EGD procedure note; 6 mg iv versed, 50mg iv fent E--->nml G--->nml, small polyp removed, bx for AIME D---->nml, bx for celiac NO cause for nause, fu bx, consider GET Friday GI to follow Fredis Rg MD
--- NOTE | 2019-06-21 16:47 | CONS ---
CONSULTATION REPORT: DATE OF CONSULT: 06/21/19 REQUESTING PHYSICIAN: Erin Davey NP. INDICATION: Nausea. NARRATIVE: Ms. Folod is a pleasant 73-year-old female, whom I saw in July for colonoscopy. Three polyps were removed. She also had an upper endoscopy by myself back in 2014 for GERD. It revealed a hiatal hernia and some mild gastritis. She also has a history of hypertension, hyperlipidemia, and previously mentioned acid reflux. The patient came to the emergency room on 10/30 and was admitted for acute renal insufficiency in the setting of abdominal pain, nausea and diarrhea. She was found to have prerenal azotemia, was given fluids. Her acute kidney injury has improved; however, she continues to have nausea and intermittent diarrhea. She states that she has never had these types of symptoms before. She denies any headaches, no dizziness, no vomiting. She states that she could but she does not vomit. No new medications. Nonbloody stool. Again, she did have a normal colonoscopy in July. She has never had these types of symptoms before. She denies any fevers or chills. Again, she was admitted to the hospital. We put her on IV antibiotics and fluids and her kidney function has improved. PAST SURGICAL HISTORY: Tubal ligation, breast biopsy. MEDICATIONS AT HOME: Include: 1. Triamterene/hydrochlorothiazide. 2. Aspirin. 3. Protonix. 4. Losartan. 5. Lipitor. ALLERGIES: None. FAMILY HISTORY: Breast cancer. SOCIAL HISTORY: She quit smoking approximately 30 years ago, rare alcohol. REVIEW OF SYSTEMS: Twelve systems were reviewed and other than that mentioned in the HPI were unremarkable. PHYSICAL EXAM: Temperature is 98.7, blood pressure is 177/88, pulse is 69, respiratory rate of 20, O2 sat is 93%. General: Well-appearing female, no apparent distress. Alert, oriented, pleasant and fluent. HEENT: Mucous membranes are moist without lesions, ulcers or exudates. Neck: Supple. Trachea is midline. Head is normocephalic, atraumatic. Heart: Regular rate and rhythm. Lungs: Clear to auscultation. Abdomen: Positive bowel sounds. Soft, nontender, nondistended. No hepatosplenomegaly, masses, rebound or guarding. Skin is warm and dry. LABORATORY DATA: Of note, white count is 5.7, hemoglobin is 10.9, platelets of 209. Creatinine is down to 2.48, glucose is 113, CRP is 16.46. She does have abdominal x-ray from yesterday that was normal. ASSESSMENT AND PLAN: This is a pleasant 73-year-old female who comes in with nausea, diarrhea and acute kidney injury. Gastroenteritis did make the most sense; however, it has been a few day. I would think it should have improved by now; however, she still continues to have the same nausea and diarrhea. Primary team has asked for an upper endoscopy. I think that this is reasonable. We will look for any ulcers, biopsy for H. pylori and celiac. One of the possibility would be gastroparesis, may be an acute postinfectious gastroparesis. They do have stool studies those are pending at this time and we will continue to follow along. [id number]/[facility] #: [id number] [facility]
[2019-06-21] MEDS: Atorvastatin* 40 MG TAB PO SCH (17:18)
--- NOTE | 2019-06-21 17:29 | PN ---
Subjective Date of Service: 06/21/19 Interval History: Pt is feeling so much better currently than she had been. She denies any abdominal pain. No SOB. Objective Active Medications: Acetaminophen (Tylenol Tab*) 650 mg PO Q4H PRN PRN Reason: MILD PAIN or TEMP > 100.4 Last Admin: 06/20/19 15:12 Dose: 650 mg Al Hydrox/Mg Hydrox/Simethicone (Maalox Plus*) 30 ml PO Q6H PRN PRN Reason: INDIGESTION Atorvastatin Calcium (Lipitor*) 40 mg PO 1700 [facility] Last Admin: 06/21/19 17:18 Dose: 40 mg Famotidine (Pepcid Tab*) 10 mg PO DAILY [facility] Last Admin: 06/21/19 10:11 Dose: Not Given Heparin Sodium (Porcine) (Heparin Vial(*)) 5,000 units SUBCUT Q8HR [facility] Last Admin: 06/21/19 13:37 Dose: Not Given Sodium Chloride (Ns 0.9% 1000 Ml) 1,000 mls @ 75 mls/hr IV PER RATE [facility] Last Admin: 06/21/19 07:16 Dose: 75 mls/hr Loperamide HCl (Imodium Cap*) 2 mg PO .SEE DIRECTIONS PRN PRN Reason: DIARRHEA Magnesium Hydroxide (Milk Of Magnesia Liq*) 30 ml PO Q4H PRN PRN Reason: CONSTIPATION Multivitamins/Minerals (Theragran/Minerals Tab*) 1 tab PO DAILY [facility] Last Admin: 06/21/19 10:11 Dose: Not Given Ondansetron HCl (Zofran Inj*) 4 mg IV Q4H PRN PRN Reason: NAUSEA/VOMITING Last Admin: 06/21/19 10:35 Dose: 4 mg Prochlorperazine Edisylate (Compazine Inj*) 5 mg IV Q6H PRN PRN Reason: NAUSEA/VOMITING Last Admin: 06/21/19 07:16 Dose: 5 mg Vital Signs - 8 hr 06/21/19 06/21/19 06/21/19 11:15 12:00 16:04 Temperature 98.7 F 98.7 F Pulse Rate 69 59 77 Respiratory 20 16 Rate Blood Pressure 177/88 165/68 143/55 (mmHg) O2 Sat by Pulse 93 96 96 Oximetry 06/21/19 16:08 Temperature 98.7 F Pulse Rate 77 Respiratory 20 Rate Blood Pressure 144/87 (mmHg) O2 Sat by Pulse 96 Oximetry Oxygen Devices in Use Now: None Appearance: Elderly female sitting up on the edge of the bed, eating, NAD Eyes: No Scleral Icterus Ears/Nose/Mouth/Throat: Mucous Membranes Moist Respiratory: Symmetrical Chest Expansion and Respiratory Effort, Clear to Auscultation Cardiovascular: NL Sounds; No Murmurs; No JVD, RRR, No Edema Abdominal: NL Sounds; No Tenderness; No Distention Extremities: No Clubbing, Cyanosis Skin: No Nodules or Sclerosis Neurological: Alert and Oriented x 3 Result Diagrams: 06/21/19 05:47 06/21/19 05:47 Microbiology and Other Data: Microbiology 06/21/19 06:00 Stool Gross Appearance - Final Stool Assess/Plan/Problems-Billing Ms. Flood is a 73 yof PMHx HTN, HLD, GERD presents with decreased appetite, nausea, diarrhea, found to have ARF secondary to ATN from a prolonged pre-renal state. - Patient Problems (1) ARF (acute renal failure) Current Visit: Yes Status: Acute Comment: Creatinine is very slowly trending down. Likely ATN from a prolonged pre-renal state with slow improvement. Will give KCl 20mEq x1 now for mild hypokalemia. (2) Diarrhea Current Visit: Yes Status: Acute Code(s): R19.7 - DIARRHEA, UNSPECIFIED SNOMED Code(s): 29565662 Comment: Continues to have intermittent diarrhea. Continue to monitor stooling frequency. (3) GERD (gastroesophageal reflux disease) Current Visit: Yes Status: Acute Code(s): K21.9 - GASTRO-ESOPHAGEAL REFLUX DISEASE WITHOUT ESOPHAGITIS SNOMED Code(s): 515598682 Comment: Continue famotidine instead of PPI in case ARF is secondary to AIN from PPI. (4) Hypertension Current Visit: Yes Status: Acute Code(s): I10 - ESSENTIAL (PRIMARY) HYPERTENSION SNOMED Code(s): 00498506 Comment: BP is moderately elevated. Will start amlodpine 5mg po daily. (5) Nausea Current Visit: Yes Status: Acute Code(s): R11.0 - NAUSEA SNOMED Code(s): 298844827 Comment: No clear cause for persistent nausea. EGD generally negative. Plan for gastric emptying study tomorrow. Continue prn antiemetics. (6) Hyperlipidemia Current Visit: Yes Status: Acute Code(s): E78.5 - HYPERLIPIDEMIA, UNSPECIFIED SNOMED Code(s): 56723774 Comment: Continue statin (7) DVT prophylaxis Current Visit: Yes Status: Acute Code(s): Z29.9 - ENCOUNTER FOR PROPHYLACTIC MEASURES, UNSPECIFIED SNOMED Code(s): 693401961 Comment: SQ Heparin (8) DNR (do not resuscitate) Current Visit: Yes Status: Acute Comment: Status and Disposition: .
[2019-06-21] MEDS ORDERED: Potassium Chlor TAB* 20 MEQ TAB.ER PO ONE (17:35)
--- NOTE | 2019-06-21 22:38 | PRO ---
CC: Devon Curiel M.D.* DATE OF PROCEDURE: 06/21/19 - ROOM #414 PROCEDURE PERFORMED: EGD. INDICATION: Nausea and diarrhea. REFERRING PHYSICIAN: Devon Curiel M.D. MEDICATIONS GIVEN: 50 mcg IV fentanyl, 6 mg IV Versed. DESCRIPTION OF PROCEDURE: After the EGD procedure including the risks, benefits , and alternatives not limited to perforation, surgery, and/or were explained to the patient, written consent was then obtained. IV medication was given and a bite-block was placed between the teeth. An Olympus gastroscope was then inserted into the patient's mouth and advanced down the esophagus, into the stomach, and into the distal duodenum. In the esophagus, at the GE junction, Z-line was intact. She does have a small hiatal hernia. No erosive esophagitis was seen. Scope was advanced through the GE junction into the body of the stomach. Retroflex view was unremarkable. Forward view also was unremarkable. Biopsy was obtained for H. pylori and she did have a small polyp that was removed with regular biopsy forceps. Scope was advanced through a widely patent pylorus, into the duodenal bulb, into the distal duodenum, both of which were unremarkable. Scope was then withdrawn from the patient. She tolerated the procedure well and was returned to the hospital room in stable condition. IMPRESSION: 1. Complete upper endoscopy into the distal duodenum with biopsy polypectomy and biopsies. 2. Gastric polyps, status post biopsy polypectomy. 3. Biopsy for Helicobacter pylori and celiac disease. 4. I will follow up on all biopsies. If unremarkable likely we should get a gastric emptying test. [id number]/[facility] #: [id number] [facility]
[2019-06-22] MEDS: NS 0.9% 1000 ML** 1,000 ML IV SCH ×2 (00:37→21:15)
[2019-06-22] MEDS: Heparin VIAL(*) 5000 UNITS/ML VIAL (FIVE THOUSAND) SUBCUT SCH ×3 (06:31→21:54)
[2019-06-22] MEDS: amLODIPine TAB* 5 MG PO SCH (08:46)
[2019-06-22] MEDS: Multivitamins/Minerals TAB PO SCH ×2 (08:46→08:48)
[2019-06-22] MEDS: Famotidine TAB* 20 MG PO SCH (08:46)
[2019-06-22 09:47] LABS: BUN/Creatinine Ratio 5.3 (8-20); EGFR African American 28.3 (>60); EGFR Non-African American 23.4 (>60); Potassium 2.8 mmol/L (3.5-5.0)
[2019-06-22] MEDS ORDERED: hydrALAZINE IV* 20 MG/ML VIAL IV SLOW PU PRN (11:51)
[2019-06-22] MEDS: PROCHLORPERAZINE INJ 5 MG/ML 2 ML VIAL IV PRN ×2 (11:59→18:23)
--- NOTE | 2019-06-22 13:48 | PN ---
Subjective Date of Service: 06/22/19 Interval History: Ms. Flood is feeling poor today. Overall, she is feeling better, but she is very nauseous this morning which she believes is because she has not had anything to eat. No emesis or abdominal pain, but she does report abdominal "bubbling." Denies CP or SOB. She is looking forward to being able to eat after her test this morning. Nursing reports hypertension. Family History: Unchanged from Admission Social History: Unchanged from Admission Past Medical History: Unchanged from Admission Objective Active Medications: Acetaminophen (Tylenol Tab*) 650 mg PO Q4H PRN MILD PAIN or TEMP > 100.4 Al Hydrox/Mg Hydrox/Simethicone (Maalox Plus*) 30 ml PO Q6H PRN INDIGESTION Amlodipine Besylate (Norvasc Tab*) 5 mg PO DAILY [facility]CLUDE 234 BEDS AT THE [facility] Atorvastatin Calcium (Lipitor*) 40 mg PO 1700 [facility] Famotidine (Pepcid Tab*) 10 mg PO DAILY [facility]S INCLUDE 234 BEDS AT THE [facility] Heparin Sodium (Porcine) (Heparin Vial(*)) 5,000 units SUBCUT Q8HR [facility] Hydralazine HCl (Apresoline Iv*) 5 mg IV SLOW PU Q6H PRN Systolic Bp Greater Than: 160 Sodium Chloride (Ns 0.9% 1000 Ml) 1,000 mls @ 75 mls/hr IV PER RATE [facility] Loperamide HCl (Imodium Cap*) 2 mg PO .SEE DIRECTIONS PRN DIARRHEA Magnesium Hydroxide (Milk Of Magnesia Liq*) 30 ml PO Q4H PRN CONSTIPATION Multivitamins/Minerals (Theragran/Minerals Tab*) 1 tab PO DAILY [facility]S INCLUDE 234 BEDS AT THE [facility] Ondansetron HCl (Zofran Inj*) 4 mg IV Q4H PRN NAUSEA/VOMITING Prochlorperazine Edisylate (Compazine Inj*) 5 mg IV Q6H PRN NAUSEA/VOMITING Vital Signs - 8 hr 06/22/19 06/22/19 06/22/19 07:15 07:25 11:15 Temperature 99.3 F 98.1 F Pulse Rate 60 66 Respiratory 20 20 18 Rate Blood Pressure 168/68 168/76 (mmHg) O2 Sat by Pulse 95 96 Oximetry Oxygen Devices in Use Now: None Appearance: Elderly female sitting in bed in NAD Ears/Nose/Mouth/Throat: Mucous Membranes Moist Neck: NL Appearance and Movements; NL JVP, Trachea Midline Respiratory: Symmetrical Chest Expansion and Respiratory Effort, Clear to Auscultation Cardiovascular: NL Sounds; No Murmurs; No JVD, RRR Abdominal: NL Sounds; No Tenderness; No Distention Extremities: No Edema Neurological: Alert and Oriented x 3 Lines/Tubes/Other Access: Clean, Dry and Intact Peripheral IV Result Diagrams: 06/21/19 05:47 06/22/19 08:44 Assess/Plan/Problems-Billing Assessment: Ms. Flood is a 73 yo F with PMH of HTN, HLD, GERD; who presented with decreased appetite, nausea, diarrhea, found to have ARF secondary to ATN from a prolonged pre-renal state. - Patient Problems (1) Acute kidney injury Code(s): N17.9 - ACUTE KIDNEY FAILURE, UNSPECIFIED Comment: - Creatinine continues to improve - FeNA suggests prerenal which is consistent with fluid loss in setting of diarrhea progressing to ATN - Do not suspect GN; no recent antibiotics and most recent new med is Dyazide ( 1 year ago) - UA without protein or blood - US without hydro, obstruction of left kidney; right kidney was not imaged for unclear reasons - Nephrology consult appreciated; Dr. Martinez recommends stopping PPI as it may cause AIN - [place] free light chains only mildly elevated - Hold Dyazide and losartan - Continue IVF (2) Nausea Code(s): R11.0 - NAUSEA Comment: - No clear cause for persistent nausea - EGD generally negative - Appreciate GI consult - Gastric emptying study today - Continue Zofran, Compazine (3) Diarrhea Code(s): R19.7 - DIARRHEA, UNSPECIFIED Comment: - Resolved (4) Hypertension Code(s): I10 - ESSENTIAL (PRIMARY) HYPERTENSION Comment: - Mildly hypertensive - Continue amlodipine (5) GERD (gastroesophageal reflux disease) Code(s): K21.9 - GASTRO-ESOPHAGEAL REFLUX DISEASE WITHOUT ESOPHAGITIS Comment : - Will avoid PPI d/t possibility of AIN - Continue famotidine (6) Hyperlipidemia Code(s): E78.5 - HYPERLIPIDEMIA, UNSPECIFIED Comment: - Continue atorvastatin (7) DVT prophylaxis Code(s): Z29.9 - ENCOUNTER FOR PROPHYLACTIC MEASURES, UNSPECIFIED Comment: - Heparin SQ (8) DNR (do not resuscitate) Comment: Status and Disposition: Inpatient. Anticipate d/c home when medically stable, likely 1-2 more days. Attending: Mandi Julian
[2019-06-22] MEDS: Ondansetron INJ* 2 MG/ML VIAL IV PRN (15:00)
[2019-06-22 16:30] LABS: Albumin 100 %; Total Protein(PEP) Urine <4 mg/dL
[2019-06-22] MEDS: Atorvastatin* 40 MG TAB PO SCH (17:52)
[2019-06-22] MEDS: KCL 20 MEQ/100 ML IVPREMIX* 20 MEQ/100 ML BAG IV SCH (21:54)
[2019-06-23] MEDS: KCL 20 MEQ/100 ML IVPREMIX* 20 MEQ/100 ML BAG IV SCH (01:56)
[2019-06-23] MEDS: Heparin VIAL(*) 5000 UNITS/ML VIAL (FIVE THOUSAND) SUBCUT SCH ×2 (06:13→13:43)
[2019-06-23 06:15] LABS: BUN/Creatinine Ratio 5.1 (8-20); Calcium 7.7 mg/dL (8.6-10.3); EGFR African American 30.3 (>60); EGFR Non-African American 25.1 (>60); Potassium 2.8 mmol/L (3.5-5.0)
[2019-06-23] MEDS: Potassium Chlor TAB* 20 MEQ TAB.ER PO SCH (08:56)
[2019-06-23] MEDS: Multivitamins/Minerals TAB PO SCH (08:57)
[2019-06-23] MEDS: Famotidine TAB* 20 MG PO SCH (08:57)
[2019-06-23] MEDS: amLODIPine TAB* 5 MG PO SCH (08:58)
--- NOTE | 2019-06-23 11:50 | PN ---
Subjective Date of Service: 06/23/19 Interval History: Ms. Flood is feeling a little better today. She was able to tolerate a regular diet for breakfast. No N/V. Still having diarrhea, 2 times so far this morning. She believes a total of 4 episodes yesterday. Denies CP or SOB. Urinating well. No concerns from nursing. Family History: Unchanged from Admission Social History: Unchanged from Admission Past Medical History: Unchanged from Admission Objective Active Medications: Acetaminophen (Tylenol Tab*) 650 mg PO Q4H PRN MILD PAIN or TEMP > 100.4 Al Hydrox/Mg Hydrox/Simethicone (Maalox Plus*) 30 ml PO Q6H PRN INDIGESTION Amlodipine Besylate (Norvasc Tab*) 5 mg PO DAILY ZEINAB Atorvastatin Calcium (Lipitor*) 40 mg PO 1700 ZEINAB Famotidine (Pepcid Tab*) 10 mg PO DAILY ZEINAB Heparin Sodium (Porcine) (Heparin Vial(*)) 5,000 units SUBCUT Q8HR ZEINAB Hydralazine HCl (Apresoline Iv*) 5 mg IV SLOW PU Q6H PRN Systolic Bp Greater Than: 160 Potassium Chloride 20 meq/ (Lactated Ringer's) 1,010 mls @ 75 mls/hr IVPB Q13H ZEINAB Loperamide HCl (Imodium Cap*) 2 mg PO .SEE DIRECTIONS PRN DIARRHEA Magnesium Hydroxide (Milk Of Magnesia Liq*) 30 ml PO Q4H PRN CONSTIPATION Multivitamins/Minerals (Theragran/Minerals Tab*) 1 tab PO DAILY ZEINAB Ondansetron HCl (Zofran Inj*) 4 mg IV Q4H PRN NAUSEA/VOMITING Potassium Chloride (Klor Con Er Tab*) 40 meq PO BID ZEINAB Prochlorperazine Edisylate (Compazine Inj*) 5 mg IV Q6H PRN NAUSEA/VOMITING Vital Signs - 8 hr 06/23/19 06/23/19 03:50 07:42 Temperature 99.3 F 97.4 F Pulse Rate 68 62 Respiratory 20 20 Rate Blood Pressure 121/57 150/65 (mmHg) O2 Sat by Pulse 93 95 Oximetry Oxygen Devices in Use Now: None Appearance: Elderly female sitting in bed in NAD Ears/Nose/Mouth/Throat: Mucous Membranes Moist Neck: NL Appearance and Movements; NL JVP, Trachea Midline Respiratory: Symmetrical Chest Expansion and Respiratory Effort, Clear to Auscultation Cardiovascular: NL Sounds; No Murmurs; No JVD, RRR Abdominal: NL Sounds; No Tenderness; No Distention Extremities: No Edema Neurological: Alert and Oriented x 3 Lines/Tubes/Other Access: Clean, Dry and Intact Peripheral IV Nutrition: Taking PO's Result Diagrams: 06/21/19 05:47 06/23/19 05:04 Assess/Plan/Problems-Billing Assessment: Ms. Flood is a 73 yo F with PMH of HTN, HLD, GERD; who presented with decreased appetite, nausea, diarrhea, found to have ARF secondary to ATN from a prolonged pre-renal state. - Patient Problems (1) Acute kidney injury Code(s): N17.9 - ACUTE KIDNEY FAILURE, UNSPECIFIED Comment: - Creatinine continues to improve - FeNA suggests prerenal which is consistent with fluid loss in setting of diarrhea progressing to ATN - Do not suspect GN; no recent antibiotics and most recent new med is Dyazide ( 1 year ago) - UA without protein or blood - US without hydro, obstruction of left kidney; right kidney was not imaged for unclear reasons - Nephrology consult appreciated; Dr. Martinez recommends stopping PPI as it may cause AIN - [place] free light chains only mildly elevated - Hold Dyazide and losartan - Continue IVF but change to LR with 20meq KCl (2) Diarrhea Code(s): R19.7 - DIARRHEA, UNSPECIFIED Comment: - Still present, but improved (~4x daily) - Stool studies negative - Continue Imodium after each loose stool (3) Hypokalemia Code(s): E87.6 - HYPOKALEMIA Comment: - Replete again and recheck BMP in AM (4) Nausea Code(s): R11.0 - NAUSEA Comment: - Resolved - Appreciate GI consult - EGD generally negative, normal biopsies - Gastric emptying study normal - Continue Zofran, Compazine (5) Hypertension Code(s): I10 - ESSENTIAL (PRIMARY) HYPERTENSION Comment: - Mostly normotensive - Continue amlodipine (6) GERD (gastroesophageal reflux disease) Code(s): K21.9 - GASTRO-ESOPHAGEAL REFLUX DISEASE WITHOUT ESOPHAGITIS Comment : - Will avoid PPI d/t possibility of AIN - Continue famotidine (7) Hyperlipidemia Code(s): E78.5 - HYPERLIPIDEMIA, UNSPECIFIED Comment: - Continue atorvastatin (8) DVT prophylaxis Code(s): Z29.9 - ENCOUNTER FOR PROPHYLACTIC MEASURES, UNSPECIFIED Comment: - Heparin SQ (9) DNR (do not resuscitate) Comment: Status and Disposition: Inpatient. Anticipate d/c home when medically stable, hopefully 1-2 more days. Attending: Mandi Julian
[2019-06-23] MEDS ORDERED: Potassium Chloride IV* 20 MEQ in Lactated Ringers 1000 ML Bag* 1,000 ML IVPB SCH (12:00)
[2019-06-23] MEDS: NS 0.9% w/ 20 Meq KCL 1000 ML* 1,000 ML IV SCH (12:56)
--- NOTE | 2019-06-23 14:59 | PN ---
Progress Note - Progress Note Date of Service: 06/23/19 Note: Chief complaint: Hypokalemia, acute kidney injury History of present illness: Patient is still having diarrhea although she thinks is improved. Continues to have about 4 watery bowel movements daily. She has been getting IV potassium. With the ongoing diarrhea potassium remains low. She was taking her potassium by mouth earlier in her hospitalization and she was tolerating it well. Kidney function is improving. She her appetite is improved and she is able to eat breakfast today. Review of systems: Constitutional: No fevers, chills GI: No abdominal pain, diarrhea is present, no vomiting : No dysuria or hematuria. Labs: Potassium is remaining low at 2.8 mEq/L, creatinine is improving at 1.96 mg/dL, sodium is 144, total CO2 26. Physical exam: Blood pressure is 141/67, temperature is 98.3F, heart rate is 65 bpm, oxygen saturation is 95% on room air Constitutional: No acute distress, pleasant and conversant. Chest: is clear to auscultation with good respiratory effort Cardiovascular: Heart exam shows S1-S2, regular rate and rhythm, no murmurs rubs or gallops. Extremities no lower extremity edema, no clubbing or cyanosis. Medications: Zofran as needed, potassium chloride 40 mEq by mouth twice a day, Imodium as needed for diarrhea. Hydralazine is negative for high blood pressure, multivitamins daily. Famotidine 10 mg daily amlodipine 10 mg daily, atorvastatin 40 mg daily, 20 mEq of potassium in 1 L of normal saline at 75 cc/ h. Assessment and plan: 1. Hypokalemia due to diarrhea. I started her today on potassium chloride 40 mEq by mouth twice a day. We will continue to check potassium levels on a daily basis. 2. Acute kidney injury is improving. Continue conservative management with good blood pressure control, avoidance of NSAIDs. Avoid volume depletion secondary to diarrhea. 3. Diarrhea. Improving. GI is following. 4. Hypertension well controlled on amlodipine 10 mg daily. No need for changes.
[2019-06-23] MEDS: Atorvastatin* 40 MG TAB PO SCH (17:35)
[2019-06-24] MEDS: Heparin VIAL(*) 5000 UNITS/ML VIAL (FIVE THOUSAND) SUBCUT SCH ×4 (00:15→20:00)
[2019-06-24] MEDS: Potassium Chlor TAB* 20 MEQ TAB.ER PO SCH ×3 (00:19→19:30)
[2019-06-24] MEDS: NS 0.9% w/ 20 Meq KCL 1000 ML* 1,000 ML IV SCH (04:09)
[2019-06-24 06:55] LABS: Potassium 3.2 mmol/L (3.5-5.0)
[2019-06-24] MEDS: Ondansetron INJ* 2 MG/ML VIAL IV PRN (07:39)
[2019-06-24 07:48] LABS: EGFR African American 35.5 (>60); EGFR Non-African American 29.3 (>60); Magnesium 1.4 mg/dL (1.9-2.7)
[2019-06-24] MEDS: amLODIPine TAB* 5 MG PO SCH (08:07)
[2019-06-24] MEDS: Famotidine TAB* 20 MG PO SCH (09:28)
[2019-06-24] MEDS: Multivitamins/Minerals TAB PO SCH (09:31)
[2019-06-24] MEDS ORDERED: Magnesium Sulf 4 GM/100 ML IV* 4,000 MG/100 ML BAG IVPB ONE (10:00)
--- NOTE | 2019-06-24 10:04 | PN ---
Subjective Date of Service: 06/24/19 Interval History: Ms. Flood is feeling well this morning. She only had 2 episode of diarrhea yesterday then had 2 somewhat formed BMs overnight. One episode of diarrhea again this morning and she did take Imodium afterward. She had difficulty swallowing the potassium pills this morning. Denies abdominal pain, N/V. Had some nausea this morning which was resolved with medication. No concerns from nursing. Family History: Unchanged from Admission Social History: Unchanged from Admission Past Medical History: Unchanged from Admission Objective Active Medications: Acetaminophen (Tylenol Tab*) 650 mg PO Q4H PRN MILD PAIN or TEMP > 100.4 Al Hydrox/Mg Hydrox/Simethicone (Maalox Plus*) 30 ml PO Q6H PRN INDIGESTION Amlodipine Besylate (Norvasc Tab*) 5 mg PO DAILY ZEINAB Atorvastatin Calcium (Lipitor*) 40 mg PO 1700 ZEINAB Famotidine (Pepcid Tab*) 10 mg PO DAILY [facility] Heparin Sodium (Porcine) (Heparin Vial(*)) 5,000 units SUBCUT Q8HR ZEINAB Hydralazine HCl (Apresoline Iv*) 5 mg IV SLOW PU Q6H PRN Systolic Bp Greater Than: 160 Potassium Chloride/Sodium Chloride (Ns 0.9% W/ 20 Meq Kcl 1000 Ml*) 1,000 mls @ 75 mls/hr IV PER RATE ZEINAB Magnesium Sulfate (Magnesium Sulf 4 Gm/100 Ml Iv*) 4,000 mg in 100 mls @ 33.333 mls/hr IVPB ONCE ONE Loperamide HCl (Imodium Cap*) 2 mg PO .SEE DIRECTIONS PRN DIARRHEA Magnesium Hydroxide (Milk Of Magnesia Liq*) 30 ml PO Q4H PRN CONSTIPATION Multivitamins/Minerals (Theragran/Minerals Tab*) 1 tab PO DAILY ZEINAB Ondansetron HCl (Zofran Inj*) 4 mg IV Q4H PRN NAUSEA/VOMITING Potassium Chloride (Klor Con Er Tab*) 40 meq PO BID ZEINAB Prochlorperazine Edisylate (Compazine Inj*) 5 mg IV Q6H PRN NAUSEA/VOMITING Vital Signs - 8 hr 06/24/19 06/24/19 06/24/19 03:25 07:26 08:00 Temperature 97.5 F 98.0 F Pulse Rate 70 70 Respiratory 16 20 16 Rate Blood Pressure 171/82 167/84 (mmHg) O2 Sat by Pulse 96 97 Oximetry 06/24/19 06/24/19 06/24/19 08:07 09:27 09:58 Temperature Pulse Rate Respiratory 16 18 Rate Blood Pressure 134/59 (mmHg) O2 Sat by Pulse Oximetry Oxygen Devices in Use Now: None Appearance: Elderly female sitting on the edge of the bed in NAD Ears/Nose/Mouth/Throat: Mucous Membranes Moist Neck: NL Appearance and Movements; NL JVP, Trachea Midline Respiratory: Symmetrical Chest Expansion and Respiratory Effort, Clear to Auscultation Cardiovascular: NL Sounds; No Murmurs; No JVD, RRR Abdominal: NL Sounds; No Tenderness; No Distention Extremities: No Edema Neurological: Alert and Oriented x 3 Lines/Tubes/Other Access: Clean, Dry and Intact Peripheral IV Nutrition: Taking PO's Result Diagrams: 06/21/19 05:47 06/24/19 06:06 Assess/Plan/Problems-Billing Assessment: Ms. Flood is a 73 yo F with PMH of HTN, HLD, GERD; who presented with decreased appetite, nausea, diarrhea, found to have ARF secondary to ATN from a prolonged pre-renal state. - Patient Problems (1) Acute kidney injury Code(s): N17.9 - ACUTE KIDNEY FAILURE, UNSPECIFIED Comment: - Creatinine continues to improve - FeNA suggests prerenal which is consistent with fluid loss in setting of diarrhea progressing to ATN - Do not suspect GN; no recent antibiotics and most recent new med is Dyazide ( 1 year ago) - UA without protein or blood - US without hydro, obstruction of left kidney; right kidney was not imaged for unclear reasons - Nephrology consult appreciated; Dr. Martinez recommends stopping PPI as it may cause AIN - [place] free light chains only mildly elevated - Hold Dyazide and losartan - Continue IVF with KCl (2) Diarrhea Code(s): R19.7 - DIARRHEA, UNSPECIFIED Comment: - Still present, but improving - Stool studies negative - Continue Imodium after each loose stool (3) Hypokalemia Code(s): E87.6 - HYPOKALEMIA Comment: - Replete again and recheck BMP in AM (4) Hypomagnesemia Code(s): E83.42 - HYPOMAGNESEMIA Comment: - Replete and recheck in AM (5) Nausea Code(s): R11.0 - NAUSEA Comment: - Mostly resolved - Appreciate GI consult - EGD generally negative, normal biopsies - Gastric emptying study normal - Continue Zofran, Compazine (6) Hypertension Code(s): I10 - ESSENTIAL (PRIMARY) HYPERTENSION Comment: - Hypertensive this morning, now normotensive - Continue amlodipine (7) GERD (gastroesophageal reflux disease) Code(s): K21.9 - GASTRO-ESOPHAGEAL REFLUX DISEASE WITHOUT ESOPHAGITIS Comment : - Will avoid PPI d/t possibility of AIN - Continue famotidine (8) Hyperlipidemia Code(s): E78.5 - HYPERLIPIDEMIA, UNSPECIFIED Comment: - Continue atorvastatin (9) DVT prophylaxis Code(s): Z29.9 - ENCOUNTER FOR PROPHYLACTIC MEASURES, UNSPECIFIED Comment: - Heparin SQ (10) DNR (do not resuscitate) Comment: Status and Disposition: Inpatient. Anticipate d/c home when electrolytes normalize and diarrhea is controlled, hopefully 1-2 more days. Attending: Mandi Julian
[2019-06-24] MEDS: Atorvastatin* 40 MG TAB PO SCH (16:10)
--- NOTE | 2019-06-24 17:41 | PN ---
Progress Note - Progress Note Date of Service: 06/24/19 Note: Chief complaint: Acute kidney injury, hypokalemia History of present illness: Patient is doing much better today. Diarrhea is much improved. She had 1 bowel movement during the night and one during the day. Potassium is much better with 3.2 mEq/L from 2.8 yesterday. She continues potassium chloride by mouth without any side effects. Kidney function is improved as well. Review of systems: No fevers, chills, nausea, vomiting. Diarrhea improved as above Respiratory: No shortness of breath, cough, sputum production, hemoptysis : Good urine output, no dysuria no hematuria. Labs show a potassium of 3.2, sodium 144, magnesium 1.4, creatinine 1.71 and total CO2 of 23. Physical exam: Blood pressure 167/87, heart rate 70 bpm, respiratory rate 20/min, temperature 98F, oxygen saturation is 97% on room air. Constitutional: No acute distress, pleasant and conversant. Extremities without clubbing, cyanosis or edema Psychiatric: Alert and oriented 3, normal mood normal mood, judgment and insight appropriate Neurologic: Grossly nonfocal. Assessment and plan: 1. Acute kidney injury secondary to volume depletion. Improving. Consider continued conservative management. 2. Hypokalemia, improving. Continue potassium chloride 40 mEq by mouth twice a day we will repeat labs tomorrow. 3. Diarrhea improving.
[2019-06-25] MEDS: NS 0.9% w/ 20 Meq KCL 1000 ML* 1,000 ML IV SCH (00:12)
[2019-06-25] MEDS: Heparin VIAL(*) 5000 UNITS/ML VIAL (FIVE THOUSAND) SUBCUT SCH (05:39)
[2019-06-25 06:03] LABS: ABS Eosinophils 0.3 10^3/ul (0-0.6); ABS Lymphocytes 1.1 10^3/ul (1.0-4.8); ABS Monocytes 0.6 10^3/ul (0-0.8); ABS Neutrophils 4.1 10^3/ul (1.5-7.7); Eosinophil % 4.7 %; Hematocrit 29 % (35-47); Hemoglobin 10.5 g/dL (12.0-16.0); Lymphocyte % 18.3 %; Mean Corpuscular HGB Conc 36 g/dL (31-36); Mean Corpuscular Hemoglobin 30 pg (27-31); Mean Corpuscular Volume 85 fL (80-97); Mean Platelet Volume 7.2 fL (7.4-10.4); Platelet Count 263 10^3/uL (150-450); Red Blood Count 3.44 10^6 /uL (3.70-4.87); Red Cell Distribution Width 12 % (10-15); White Blood Count 6.1 10^3/uL (3.5-10.8)
[2019-06-25 06:25] LABS: BUN/Creatinine Ratio 7.5 (8-20); Calcium 8.3 mg/dL (8.6-10.3); EGFR African American 38.6 (>60); EGFR Non-African American 31.9 (>60); Magnesium 2.1 mg/dL (1.9-2.7); Potassium 3.7 mmol/L (3.5-5.0)
[2019-06-25] MEDS: amLODIPine TAB* 5 MG PO SCH (07:53)
[2019-06-25] MEDS: Famotidine TAB* 20 MG PO SCH (07:54)
[2019-06-25] MEDS: Ondansetron INJ* 2 MG/ML VIAL IV PRN (08:36)
[2019-06-25] MEDS: Potassium Chlor TAB* 20 MEQ TAB.ER PO SCH (10:07)
[2019-06-25] MEDS: Multivitamins/Minerals TAB PO SCH (10:08)
[2019-06-25 13:13] VITALS: BP 153/83
--- NOTE | 2019-06-25 22:37 | DS ---
CC: Dr. Curiel; Dr. Estes * DISCHARGE SUMMARY: DATE OF ADMISSION: DATE OF DISCHARGE: PRIMARY CARE PROVIDER: Dr. Curiel. CONSULTING PREFLIGHT MECHANIC: Dr. Mackenzie, Dr. Estes. ATTENDING PROVIDER: Mandi Julian MD * (DICTATED BY FRANK GALLO) PRIMARY DIAGNOSES: 1. Acute kidney injury secondary to gastrointestinal loss, improving. 2. Diarrhea and nausea of unclear etiology, possibly postinfectious gastroenteritis, though unclear as gastric emptying study is within normal limits. PROCEDURE WHILE IN THE HOSPITAL: 1. Gastric emptying study at 49.5 minutes, which is within normal limits. 2. EGD without acute findings and biopsies within normal limits and a negative CLOtest. 3. Stool culture is negative for shiga toxin 1 and 2. 4. Abdomen x-ray, nonobstructive bowel gas pattern on 06/20/19. 5. Renal ultrasound on 06/16/19 sonographically normal left kidney and the right kidney was not imaged. 6. Gallbladder ultrasound, no evidence of cholelithiasis or biliary duct obstruction is noted. PERTINENT LABORATORY DATA: Creatinine on discharge 1.59, BUN on discharge 12, potassium on discharge 3.7, and magnesium on discharge 2.1. HISTORY OF PRESENT ILLNESS/HOSPITAL COURSE: Mari Flood is a 73-year-old white female with past medical history significant for hypertension, hyperlipidemia, and GERD, who presented to the emergency department due to several days of nausea, vomiting, and diarrhea. Please see the admitting history and physical written by myself for further details. In brief, the patient was admitted with acute kidney injury that was initially worsening despite IV antibiotics, but did slowly improve. This was thought to be possibly ATN in the setting of GI loss. Though during her hospital stay, her diarrhea and nausea did not improve given that this has been going on for several weeks, GI was consulted and it was probably initially viral gastroenteritis; however, this did not improve and EGD and gastric emptying study were within normal limits. CT of the abdomen and pelvis was not performed during the hospital stay because of her kidney injury and her GFR is currently only at approximately 32. The patient did slowly improve though and was feeling better and tolerating regular diet and did have a formed bowel movement on the day of discharge. During her hospital stay, she did have frequent electrolyte abnormalities though this is likely secondary to IV fluid use, though may be a component of her significant diarrhea as well. This has resolved by the day of discharge. The patient was seen in consultation by the e d tech as well and today, Dr. Estes agreed that she is safe for discharge. Her kappa and free light chains were only minimally elevated and this is likely not indicative of any pathology. Her PPI was stopped during her hospital stay due to the risk of possible AIN. DISCHARGE PLAN: Diet: Regular, unrestricted diet. Activity: The patient may return to normal activity as tolerated. The patient should follow up with Dr. Rg in 1 to 2 weeks to evaluate if her symptoms are improving, perhaps further outpatient evaluation should be conducted including a CT of the abdomen and pelvis as it was not able to be conducted during this stay due to her AMANDA. She was advised to continue Imodium if she continues to have loose bowel movements. She should follow up with the e d tech, Dr. Estes in 1 week and she will have labs prior to this day and she should follow up with her primary care provider as well. She is advised to return to the hospital if she has low back pain, fever, chills, vomiting to the point not being able to keep down liquids, blood in her stool. The patient was advised to check her blood pressure at home and to record this to discuss with her primary care provider at followup and at that time it could be decided if her home medications need to be changed and based on her labs if it is safe to restart her losartan, though she was well controlled on amlodipine during her hospital stay. DISCHARGE MEDICATIONS: New medications: 1. Famotidine 20 mg p.o. daily. 2. Loperamide 2 mg p.o. q.4 hours p.r.n. loose stools. 3. Zofran 4 mg p.o. q.6 hours p.r.n. nausea or vomiting. 4. Potassium chloride 20 mEq p.o. b.i.d. 5. Amlodipine 5 mg p.o. daily. Continued home medications: 1. Atorvastatin 40 mg p.o. daily. 2. Aspirin 81 mg p.o. daily. 3. Multivitamin 1 tablet p.o. daily. 4. Fish oil 1000 mg p.o. daily. Discontinued home medications: 1. Protonix 40 mg p.o. b.i.d.. 2. Triamterene/hydrochlorothiazide 37.5/25 mg 1 cap p.o. daily. 3. Losartan 100 mg p.o. daily. CONDITION ON DISCHARGE: Stable. DISPOSITION: Home. TIME SPENT: Approximately 45 minutes was spent on this discharge, approximately half that time was spent at bedside evaluating the patient, discussing the plan of care. FRANK GALLO [id number]/CPS #: [id number] [place]
== END 2019-06-25 12:30 | disposition home or self-care (01) | DRG 391 ==
LOC: ED 08:03 → MED 17:25 → OBSVTOIN 06-17 11:00 → MED 06-23 21:49
PROVIDERS: ADMIT Internal Medicine; ATTEND Internal Medicine
PROC: 0DB98ZX Excision of Duodenum, Via Natural or Artificial Opening Endoscopic, Diagnostic (ICD-10-PCS; principal; 2019-06-21)
PROC: 0DB68ZX Excision of Stomach, Via Natural or Artificial Opening Endoscopic, Diagnostic (ICD-10-PCS; 2019-06-21)
DX: A09 Infectious gastroenteritis and colitis, unspecified (principal); N17.0 Acute kidney failure with tubular necrosis; I10 Essential (primary) hypertension; E78.5 Hyperlipidemia, unspecified; K21.9 Gastro-esophageal reflux disease without esophagitis; E87.6 Hypokalemia; E83.42 Hypomagnesemia; Z66 Do not resuscitate; K31.7 Polyp of stomach and duodenum; Z79.82 Long term (current) use of aspirin; Z79.899 Other long term (current) drug therapy; Z87.891 Personal history of nicotine dependence
CPT/HCPCS: 36415; 74019; 76705; 76775; 78264; 80048; 80053; 80069; 81003; 82150; 82550; 82570; 83605; 83690; 83735; 83883; 84156; 84166; 84300; 85025; 86140; 87045; 87046; 87077; 87899; 88305; 99156; 99285; A9270-GY; A9541; G0378; J0360; J0780; J1644; J2250; J2405; J3010; J3475; J3480